=== PATIENT | male | born 1980 | race Caucasian/White ===

== ENCOUNTER 2017-02-27 05:08 | Day surgery (SDC) | payer MEDICAID ==
[~2017-02-27] VITALS: Ht 180.3 cm; Wt 99.8 kg
[2017-02-27] MEDS ORDERED: LEVOTHYROXINE75 MCG PO (05:43)
[2017-02-27] MEDS ORDERED: MINIPRESS2 MG PO (05:46)
[2017-02-27] MEDS ORDERED: LOVASTATIN40 MG PO (05:47)
[2017-02-27] MEDS ORDERED: LISINOPRIL-HCTZ1 T11 PO (05:47)
[2017-02-27] MEDS ORDERED: AMBIEN10 MG PO (05:48)
[2017-02-27] MEDS ORDERED: SEROQUEL100 MG PO (05:49)
[2017-02-27] MEDS ORDERED: VISTARIL50 MG PO (05:50)
[2017-02-27] MEDS ORDERED: REMERON45 MG PO (05:50)
[2017-02-27 06:03] VITALS: BP 124/83; Ht 180.3 cm; Wt 99.8 kg
[2017-02-27 06:44] LABS: MCH 28.5 pg (26.0-34.0); MCV 83.8 fL (80.0-100.0); MEAN PLATELET VOLUME 10.5 fL (7.4-10.4); RBC 5.97 10x6/uL (4.20-6.10); RDW 14.9 % (11.5-14.5); WBC 7.8 10x3/uL (4.8-10.8)
[2017-02-27] MEDS ORDERED: HYDROCODONE-APA1 TAB PO (07:59)
--- NOTE | 2017-02-27 09:44 | NUR ---
0920 PIV DC W/CATHETER TIP INTACT. DC TEACHING COMPLETE W/PRESCRIPT GIVEN TO 0936 PT ESCORTED OUT VIA WC W/ DRIVING
--- NOTE | 2017-02-28 16:21 | OP ---
PATIENT NAME: SINDHU MONSIVAIS MEDICAL RECORD: [id number] :76 LOCATION:[facility] ADMISSION DATE: SURGEON: SEYMOUR CHASE MD DATE OF OPERATION: 02/27/2017 PREOPERATIVE DIAGNOSIS: Carpal tunnel syndrome of the left wrist. POSTOPERATIVE DIAGNOSIS: Carpal tunnel syndrome of the left wrist. PROCEDURE: Left carpal tunnel release. SURGEON: Seymour Chase MD ANESTHESIA: General. INTRAOPERATIVE COMPLICATIONS: None. SUMMARY OF PATHOLOGIC FINDINGS: A very tight transverse carpal ligament consistent with the preoperative diagnosis. OPERATIVE SUMMARY IN DETAIL: After obtaining the appropriate preoperative orthopedic surgery consent as well as anesthetic consultation, evaluation and clearance, the patient were placed in supine position. After general laryngeal mask was administered, tourniquet was placed about the proximal aspect of the left upper extremity. Left upper extremity was prepped and draped in routine sterile fashion. The arm was elevated and exsanguinated, tourniquet inflated to 250 mmHg. A mid palmar incision was made, taken down to the level of distal aspect of the transverse carpal ligament was identified and incised. The median nerve was identified then covered with a freer elevator while the remainder of the transverse carpal ligament was incised under direct visualization. Having completed this, the wound was irrigated and closed with 4-0 Prolene in a combination of interrupted mattress fashion. The area was locally anesthetized with 0.25% Marcaine plain. Sterile dressings were applied. Tourniquet was deflated. The patient was awakened, taken to recovery in stable condition. All final needle and sponge counts were correct. TRANSINT:[id number] Voice Confirmation ID: [id number] DOCUMENT ID: [id number] SEYMOUR CHASE MD at 1621 CC: [id number] DICTATION DATE: 02/27/17 0801 CARE MANAGEMENT SPECIALIST: 02/27/17 1400 [facility] 02/27/[address] [id number]
== END 2017-02-27 09:35 | disposition home or self-care (01) ==
LOC: D.OPS 05:08 → D.PAN 07:30 → D.OPS 07:30
PROVIDERS: Anesthesiology
DX: G56.02 Carpal tunnel syndrome, left upper limb (principal); I10 Essential (primary) hypertension; Z72.0 Tobacco use; Z01.812 Encounter for preprocedural laboratory examination

== ENCOUNTER → 2017-04-14 05:08 | Day surgery (SDC) | payer MEDICAID ==
[~2017-04-14] VITALS: Ht 180.3 cm; Wt 99.8 kg
--- NOTE | ~2017-04-14 | OP ---
PATIENT NAME: SINDHU MONSIVAIS MEDICAL RECORD: [id number] :76 LOCATION:D.OPS ADMISSION DATE: SURGEON: SEYMOUR CHASE MD DATE OF OPERATION: 04/14/2017 PREOPERATIVE DIAGNOSIS: Carpal tunnel syndrome of the right hand. POSTOPERATIVE DIAGNOSIS: Carpal tunnel syndrome of the right hand. PROCEDURE: Carpal tunnel release. SURGEON: Seymour Chase MD ANESTHESIA: General. INTRAOPERATIVE COMPLICATIONS: None. SUMMARY OF PATHOLOGIC FINDINGS: A very tight transverse carpal ligament consistent with preoperative diagnosis as was seen on the contralateral side of the previous surgery. OPERATIVE SUMMARY IN DETAIL: After obtaining the appropriate preoperative orthopedic surgery consent as well as anesthetic consultation, evaluation and clearance, the patient was brought to the operating room and placed on the operating table in supine position. After general laryngeal mask was administered, tourniquet was placed about the proximal aspect of the right upper extremity. Right upper extremity was then prepped and draped in routine sterile fashion. The arm was elevated and exsanguinated, tourniquet inflated to 250 mmHg. Routine incision was made in line with the fourth metacarpal taken down to the level of transverse carpal ligament, it was identified. The median nerve was then protected. Light knife was utilized for carpal tunnel release. The transverse carpal ligament was released under direct visualization while protecting the median nerve. The wound was irrigated and closed with 4-0 Prolene. Sterile dressings were applied. Tourniquet was deflated. The patient was awakened and taken to the recovery room in stable condition. All final needle and sponge counts were correct. TRANSINT:[id number] Voice Confirmation ID: [id number] DOCUMENT ID: [id number] SEYMOUR CHASE MD CC: [id number] DICTATION DATE: 04/14/1745 LOFTSMAN/WOMAN: 04/14/1735 [place] [address]
[~2017-04-14 05:08] MED LIST: AMBIEN10 MG PO; HYDROCODONE-APA1 TAB PO; LEVOTHYROXINE75 MCG PO; LISINOPRIL-HCTZ1 T11 PO; LOVASTATIN40 MG PO; MINIPRESS2 MG PO; REMERON45 MG PO; SEROQUEL100 MG PO; VISTARIL50 MG PO
[2017-04-14 05:51] VITALS: BP 117/75; Ht 180.3 cm; Wt 99.8 kg
[2017-04-14 06:42] LABS: HEMOGLOBIN 17.5 g/dL (13.5-17.5); MCH 29.4 pg (26.0-34.0); MCV 83.9 fL (80.0-100.0); MEAN PLATELET VOLUME 10.8 fL (7.4-10.4); RBC 5.96 10x6/uL (4.20-6.10); RDW 14.8 % (11.5-14.5); WBC 5.9 10x3/uL (4.8-10.8)
== END | disposition home or self-care (01) ==
LOC: D.OPS 05:08 → D.PAN 07:30 → D.OPS 07:30
PROVIDERS: Anesthesiology
DX: G56.01 Carpal tunnel syndrome, right upper limb (principal); I10 Essential (primary) hypertension; E03.9 Hypothyroidism, unspecified; Z01.812 Encounter for preprocedural laboratory examination

== ENCOUNTER → 2018-07-08 15:01 | Outpatient (CLI) | payer MEDICAID ==
[2017-04-14 05:51] VITALS: BMI 30.7
[~2018-07-08 15:01] MED LIST changes: +HYDROCODON-ACE1 EAC7 PO; +KLONOPIN0.5 MG PO; +MEDROL DOSE PACK4 MG PO; +MIRALAX17 GM PO; +TOFRANIL50 MG PO; +ULTRAM50 MG PO; +ZOFRAN4 MG PO
== END | disposition home or self-care (01) ==
LOC: D.CT 15:00
DX: R51 Headache (principal)

== ENCOUNTER → 2018-07-09 09:07 | Outpatient (CLI) | payer MEDICAID ==
[2017-04-14 05:51] VITALS: BMI 30.7
== END | disposition home or self-care (01) ==
LOC: D.MRI 09:07
DX: R22.0 Localized swelling, mass and lump, head (principal)

== ENCOUNTER 2018-07-09 19:46 | Inpatient (IN) | payer MEDICAID ==
[~2018-07-09] VITALS: Ht 180.3 cm; Wt 93.2 kg
--- NOTE | ~2018-07-09 | MORECARE ---
CASE MANAGEMENT DISCHARGE SUMMARY PATIENT: ISNDHU MONSIVAIS UNIT: [id number] ADM DATE: 07/09/18 AGE: 37 : 76 SEX: M ROOM/BED: D.2226 AUTHOR: JOHNY HORN PHYSICIAN: REFERRING PHYSICIAN: BRIAN JUAREZ MD DATE OF SERVICE: 07/13/18 Discharge Plan Patient Name: SINDHU MONSIVAIS [facility] [facility] 1980 Planned Disposition: Anticipated Discharge Date: Discharge Date: 07/11/2018 Expected LOS: 0 Initial Reviewer: [email or web address] Initial Review Date: 07/13/2018 Generated: 07/13/18 3:47 pm Patient Name: SINDHU MONSIVAIS Page [phone] at 1447 All edits/amendments must be made on the electronic document DICTATION DATE: 07/13/18 1446 BUSINESS ANALYSIS PROFESSIONAL: LILI 07/13/18 1446 RPT#: [id number] DC DATE:07/11/18 STATUS: DIS IN [facility] [address] [place] [address] END OF REPORT
--- NOTE | ~2018-07-09 | OP ---
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 SURGEON: Modesta Shelton MD PROCEDURE: Right Stephanie's point ventriculoperitoneal shunt. DESCRIPTION AND TECHNIQUE: After induction of general endotracheal anesthesia, the patient was positioned supine on the operating table. The scalp, neck, chest and abdomen were prepped and draped in the usual sterile fashion. A 1:100,000 epinephrine was infiltrated of the scalp of the right Stephanie's point and then over the right mastoid and then over the 3 cm off the midline on the left, just above the umbilicus, an incision was made at the abdominal incision site. The anterior rectus sheath was divided with Bovie cautery and the rectus muscle was spread and then the posterior rectus sheath was divided with Metzenbaum scissors. The peritoneum was divided with Metzenbaum scissors. There were several loops of small bowel identified to confirm the peritoneal cavity. Next, the scalp incision was incised. The alejandro hole was created with the craniotome. The counter incision was incised and then an Integra standard CSF flow control valve with a ventricular catheter was used to cannulate the right frontal horn and the peritoneal portion was tunneled to the counter incision, and then from the counter incision to the abdominal incision. There was brisk egress of CSF from the CSF flow control valve and into the distal peritoneal catheter. The peritoneal catheter was deposited in the peritoneal cavity under direct vision. The posterior and anterior rectus sheath were closed with interrupted 3-0 Vicryl suture. The subdermal layer was closed with 3-0 Vicryl suture. The skin was closed with mady. At the scalp incision, the galea was reapproximated with interrupted 2-0 Vicryl suture. The counter incision fascia was closed with 3-0 Vicryl suture. Mady were used to close all 3 incisions. Counts were reported as correct. Estimated blood loss was minimal. TRANSINT:[id number] Voice Confirmation ID: [id number] DOCUMENT ID: [id number] MODESTA SHELTON MD CC: [id number] DICTATION DATE: 07/10/18 1227 POT FLUXER: 07/10/18 1554 ADM IN [place] [id number] [place] [id number]
[~2018-07-09 19:46] MED LIST changes: -HYDROCODON-ACE1 EAC7 PO; -KLONOPIN0.5 MG PO; -MEDROL DOSE PACK4 MG PO; -MIRALAX17 GM PO; -TOFRANIL50 MG PO; -ULTRAM50 MG PO; -ZOFRAN4 MG PO
[2018-07-09 20:41] VITALS: BP 137/78
[2018-07-09] MEDS ORDERED: ULTRAM50 MG PO (21:44)
[2018-07-09] MEDS ORDERED: KLONOPIN0.5 MG PO (21:46)
[2018-07-09] MEDS ORDERED: TOFRANIL50 MG PO (21:47)
[2018-07-09 23:19] VITALS: BP 137/78; Ht 180.3 cm; Wt 93.2 kg
[2018-07-10 04:39] VITALS: BP 120/69
[2018-07-10 11:32] VITALS: BP 120/68
[2018-07-10 12:35] VITALS: BP 132/77
[2018-07-10 15:52] VITALS: BP 131/75
[2018-07-10 21:33] VITALS: BP 145/86
[2018-07-11 01:10] VITALS: BP 118/74
[2018-07-11 04:40] VITALS: BP 111/72
[2018-07-11 06:17] LABS: BASOPHILS 0 % (0-2); EOSINOPHILS 0 % (0-7); HEMATOCRIT 40.2 % (42.0-54.0); HEMOGLOBIN 13.3 g/dL (13.5-17.5); IMMATURE GRANULOCYTES 0.2 % (0-5); LYMPHOCYTES 4.1 % (15-50); MCH 26.5 pg (26.0-34.0); MCHC 33.1 g/dL (31.0-37.0); MCV 80.2 fL (80.0-100.0); MEAN PLATELET VOLUME 10.5 fL (7.4-10.4); MONOCYTES 4.5 % (2-11); NEUTROPHILS 91.2 % (40-80); RBC 5.01 10x6/uL (4.20-6.10); RDW 15.7 % (11.5-14.5); WBC 17.2 10x3/uL (4.8-10.8)
[2018-07-11 06:20] LABS: PLATELET COUNT 288 10x3/uL (130-400)
[2018-07-11 06:41] LABS: CALC OSMOLALITY 282 mosm/kg (275-300); CALCIUM 8.2 mg/dL (8.5-10.1); CHLORIDE - SERUM 103 mmol/L (98-107); GLUCOSE 129 mg/dL (74-106); POTASSIUM - SERUM 3.3 mmol/L (3.5-5.1); SODIUM 140 mmol/L (136-145); UREA NITROGEN 19 mg/dL (7-18); eGFR NON AFRICAN AMERICAN 88 mL/min (90-120)
[2018-07-11 07:00] VITALS: BP 147/90
[2018-07-11] MEDS ORDERED: MIRALAX17 GM PO (11:01)
[2018-07-11] MEDS ORDERED: HYDROCODON-ACE1 EAC7 PO (11:02)
[2018-07-11] MEDS ORDERED: ZOFRAN4 MG PO (11:02)
[2018-07-11] MEDS ORDERED: MEDROL DOSE PACK4 MG PO (11:03)
== END 2018-07-11 12:45 | disposition home or self-care (01) | DRG 31 ==
LOC: D.MS 19:46 → D.OPS 07-10 09:30 → EDSTATUS 07-10 09:30 → D.MS 07-11 12:45
PROVIDERS: Internal Medicine Nephrology
PROC: 00160J6 Bypass Cerebral Ventricle to Peritoneal Cavity with Synthetic Substitute, Open Approach (ICD-10-PCS; principal; 2018-07-09)
DX: G91.1 Obstructive hydrocephalus (principal); G93.6 Cerebral edema; C71.7 Malignant neoplasm of brain stem; I10 Essential (primary) hypertension; E03.9 Hypothyroidism, unspecified; F32.9 Major depressive disorder, single episode, unspecified; F41.9 Anxiety disorder, unspecified; G47.00 Insomnia, unspecified

== ENCOUNTER 2018-08-31 11:05 | Inpatient (IN) | payer MEDICAID ==
[~2018-08-31] VITALS: Ht 180.3 cm; Wt 93.2 kg
[~2018-08-31 11:05] MED LIST changes: +HYDROCODON-ACE1 EAC7 PO; +KLONOPIN0.5 MG PO; +MEDROL DOSE PACK4 MG PO; +MIRALAX17 GM PO; +TOFRANIL50 MG PO; +ULTRAM50 MG PO; +ZOFRAN4 MG PO
[2018-09-03] VITALS (12 sets, daily range): BP systolic 108–140; BP diastolic 60–96; Ht 180.3 cm; Wt 93.2 kg
[2018-09-03 05:57] LABS: HEMATOCRIT 48.2 % (42.0-54.0); HEMOGLOBIN 16.1 g/dL (13.5-17.5); MCH 26.9 pg (26.0-34.0); MCHC 33.4 g/dL (31.0-37.0); MCV 80.6 fL (80.0-100.0); MEAN PLATELET VOLUME 9.9 fL (7.4-10.4); RBC 5.98 10x6/uL (4.20-6.10); RDW 15.8 % (11.5-14.5); WBC 6.8 10x3/uL (4.8-10.8)
[2018-09-03 06:24] LABS: CALC OSMOLALITY 282 mosm/kg (275-300); CALCIUM 8.7 mg/dL (8.5-10.1); CARBON DIOXIDE 30.1 mmol/L (21.0-32.0); CHLORIDE - SERUM 102 mmol/L (98-107); CREATININE - SERUM 1.1 mg/dL (0.6-1.3); GLUCOSE 96 mg/dL (74-106); POTASSIUM - SERUM 3.4 mmol/L (3.5-5.1); SODIUM 142 mmol/L (136-145); UREA NITROGEN 13 mg/dL (7-18); eGFR NON AFRICAN AMERICAN 79 mL/min (90-120)
--- NOTE | 2018-09-03 09:54 | NUR ---
PATIENT PLACED IN BHATT HEADREST BY DR SHELTON, THEN PLACED PRONE ON TABLE ALL AREAS CHECKED, PADDED, SECURED WITH NO IMPINGEMENTS, DR SHELTON PRESENT ON POSITIONING[facility]
--- NOTE | 2018-09-03 14:00 | NUR ---
PT RECEIVED VSS PT C/O OF MILD HEADACHE 09/27 NO SENSITIVITY TO LIGHT OR SOUND, DESCRIBED CONSTANT THROBBING. PT SHOWS NO SIGNS OF MOTOR OR NEURO DEFICITS AT THIS TIME WILL REASSESS. GIVEN ICE CHIPS FOR COMFORT. FAMILY AT BEDSIDE GIVEN UDPATE. ASSESSMENT COMPLTE PER FLOW SHEET REFER FOR FINDINGS. DENIES NEEDS WILL CONTINUE TO MONITOR
--- NOTE | 2018-09-03 18:07 | NUR ---
DR SHELTON AT BEDSIDE GIVEN UPDATE
--- NOTE | 2018-09-03 19:30 | NUR ---
REPORT REC'D AND CARE ASSUMED, REC'D PT RESTING IN BED, AWAKE, ALERT, AND ORIENTED X 4 ON ROOM AIR, PUPILS 4MM AND PERRLA, LEFT FOREARM PIV WITH NS @ 50CC/HR, LTLSCL DRSG CDI, DRSG TO POSTERIOR NECK CDI, PT COMPLAINS OF HEADACHE, RATING PAIN "4-5" ON 0-10 PAIN SCALE, CM-ST @ 110, ABD SOFT, BS HYPOACTIVE X 4 FISCHER PATENT DRAINING CLEAR YELLOW URINE, PPP, BILAT SCDS INTACT, RIGHT RADIAL CARLY WITH FLEXION BOARD IN USE, LINES LEVELED AND ZEROED WITH RETURN OF APPROPRIATE WAVEFORM, BED IN LOW POSITION ,CALL LIGHT IN REACH, VISIBLE TO NURSES STATION.
--- NOTE | 2018-09-03 19:40 | NUR ---
2MG MORPHINE GIVEN SLOW IVP, PT ASKING ABOUT ZOFRAN, INFORMED PT IT WAS TO SOON AT THIS TIME, VERBALIZED UNDERSTANDING, VSS, WILL MONITOR FOR CHANGES.
--- NOTE | 2018-09-03 21:00 | NUR ---
AND SISTER IN LAW AT BS, UPDATE GIVEN AND QUESTIONS ANSWERED, PT COMPLAINS OF HEADACHE , BP STABLE, WILL MONITOR CLOSELY FOR CHANGES.
--- NOTE | 2018-09-03 23:30 | NUR ---
REASSESSMENT COMPLETED, BILAT SEAT COVERER REMAIN EQUAL AND STRONG, SMILE SYMMETRICAL, PT REPORTS HEADACHE IMPROVED BUT NECK IS STIFF, STATES " I FEEL LIKE I WAS IN A CAR ACCIDENT", BP STABLE, DRSG TO POSTERIOR NECK CDI, REMAINS VISIBLE TO NURSES STATION.
--- NOTE | 2018-09-03 23:50 | NUR ---
PT AWAKE, STATES"MY NECK IS REALLY SORE" RATING PAIN "6" ON 0-10 PAIN SCALE PREMEDICATED WITH 4MG ZOFRAN GIVEN SLOW IVP, WILL GIVE ZOFRAN SOMETIME TO ACT AND THEN GIVE MORPHINE NEEDED FOR PAIN.
[2018-09-04] VITALS (17 sets, daily range): BP systolic 115–156; BP diastolic 68–92
--- NOTE | 2018-09-04 00:15 | NUR ---
2MG MORPHINE GIVEN SLOW IVP, BP STABLE, CM-ST @ 108, PT DENIES FURTHER NEEDS, SR UP X 2, CALL LIGHT IN REACH.
--- NOTE | 2018-09-04 02:15 | NUR ---
NO CHANGES IN STATUS AT THIS TIME, PT RESTING EYES CLOSED, RESP EVEN AND UNLABORED, BP STABLE, WILL CONT TO MONITOR CLOSELY FOR CHANGES.
--- NOTE | 2018-09-04 03:30 | NUR ---
REASSESSMENT COMPLETED, PT EASILY AWAKENS ,ORIENTED X 4, BILAT RECYCLING COLLECTIONS DRIVER EQUAL AND STRONG, SPEECH CLEAR, TONGUE MIDLINE, MOVES LOWER EXT'S EQUALLY, WHEN ASKED IF IN PAIN STATES "JUST SORE", PT DENIES NEEDS, CALL LIGHT IN REACH.
--- NOTE | 2018-09-04 03:35 | NUR ---
PT HOLDING FOREHEAD WHEN ASKED IF HURTING STATES "MY WHOLE HEAD DOES", PT RATING PAIN "6" ON 0-10 PAIN SCALE, HYDROCODONE 2 TABS GIVEN PO AT THIS TIME AND FRESH CUP OF ICE WATER PROVIDED, PT DENIES FURTHER NEEDS, CALL LIGHT IN REACH, VISIBLE TO NURSES STATION.
--- NOTE | 2018-09-04 05:00 | NUR ---
AT BS, UPDATE GIVEN AND QUESTIONS ANSWERED, PT RESTING IN BED EYES CLOSED, VSS, CM-ST @ 124, TEMP 99.1, WILL CONT TO MONITOR.
--- NOTE | 2018-09-04 07:00 | NUR ---
PATIENT RESTING IN BED WITH HOB ELEVATED 30 DEGREES. INCISION TO POSTERIOR NECK SEMISATURATED WITH SEROSANGUINEOUS FLUID. WILL ASK DR. SHELTON IF HE WANTS NURSES TO CHANGE THE DRESSING WHEN HE MAKES ROUNDS. HEART RATE IS ELEVATED TO 120--IT HAS BEEN THIS WAY SINCE RETURN FROM SURGERY YESTERDAY. OTHER VS STABLE. PUPILS EQUAL AND REACTIVE TO LIGHT WITH ACCOMODATION. MOVES ALL EXTREMETIES EQUALLY. COMPLAINS OF HEADACH. WILL TREAT WITH WITH RX AND ZOFRAN. WILL CONTINUE TO MONITOR.
--- NOTE | 2018-09-04 07:00 | NUR ---
PATIENT RESTING IN BED C CALL CRUZ IN REACH AWAKE ALERT AND ORIENTED. LUNG BARRIOS CLEAR O2 SAT 96% ON 2 L NC. VSS. BOWEL SOUNDS ACTIVE, ABDOMEN FEELS A LITTLE TIGHT ACCORDING TO PATIENT. LAXATIVES WERE GIVEN LAST NIGHT. WILL CONTINUE TO MONITOR
--- NOTE | 2018-09-04 09:59 | NUR ---
OBTAINED ORDER FROM DR. SHELTON TO START PT/OT, TRANSFER TO FLOOR, START BACK ON HOME MEDICATIONS, AND DC LINES. NOTIFIED ABOUT HR IN 120'S. STATED HE IS NOT CONCERNED WITH THAT.
--- NOTE | 2018-09-04 11:15 | NUR ---
ASSISTED PATIENT ONTO BEDSIDE COMMODE FOR BM. CONSULTED DR. JUAREZ FOR MEDICAL MANAGEMENT AFTER SPEAKING TO DR. SHELTON ON PHONE. ALSO OBTAINED ORDERS FOR THORAZINE FOR HICCUPS, TRANSFER TO FLOOR, DC CVL, ART LINE, AND CATHETER, AND CONSULT PT/OT.
--- NOTE | 2018-09-04 11:49 | NUR ---
REMOVED FISCHER CATHETER PER PATIENT REQUEST AND DR. SHELTON ORDER. PATIENT IMMEDIATELY VOIDED.
--- NOTE | 2018-09-04 13:00 | NUR ---
DC'D LEFT SUBCLAVIAN CVL AFTER LAYING FLAT. INSTRUCTED TO LAY FLAT FOR 30 MINUTES. NO BLEEDING PROBLEM. DRESSED WITH GUAZSE AND TEGADERM. DC'D RIGHT RADIAL ARTERIAL LINE. HELD PRESSURE FOR FIVE MINUTES AND DRESSED WITH GUAZE AND TEGADERM. NO BLEEDING. CHANGED POSTERIOR NECK INCISION DRESSING. OLD DRESSING WAS PARTIALLY SATURATED WITH SEROSANGUINEOUS DRAINAGE. CLEANED WITH DERMAL WOUND CLEANSER AND APPLIED NEW BORDERED GUAZE.
--- NOTE | 2018-09-04 14:30 | NUR ---
PATICONNOR HAS BEEN NAUSEATED AND THROWING IN BAG. ADMINISTERED ZOFRAN. ALSO ADMINISTERED ROBAXIN FOR NECK AND THORAZINE FOR HICCUPS. IN ROOM
--- NOTE | 2018-09-04 16:30 | NUR ---
REPORT GIVEN TO MED SURGE NURSE. TRANSFERRING TO FLOOR VIA BED.
[2018-09-05] VITALS: BP 102/59
[2018-09-05 04:00] VITALS: BP 137/91
--- NOTE | 2018-09-05 04:38 | NUR ---
ASSESSED AT THE BEGINNING OF THE SHIFT. PT IS ALERT AND ORIENTED WITH GOOD NEURO CHECKS. REMAINS AT THE BEDSIDE. HE HAS HAD NAUSEA, HICCUPS AND PAIN TO HIS HEAD AND CHEST. HICCUPS ARE VERY DEEP AND PAINFUL. HE HAS THROWN UP SEVERAL TIMES AND ONCE HE THREW UP ABOUT 300 CC OF BROWN FLUID. THORAZINE HAS NOT RELEIVED THE HICCUPS. THE DRESSING TO HIS HEAD HAS REMAINED IN PLACE AND HOB ELEVATED. UNLESS ASLEEP HE HAS BEEN PRETTY MISERABLE. HIS HAS BEEN KEEPING A WET COOL CLOTH ON HIS FOREHEAD. PAIN MEDS HAVE BEEN GIVEN REQUESTED TO KEEP HIM COMFORTABLE
[2018-09-05 09:15] VITALS: BP 145/92
--- NOTE | 2018-09-05 10:15 | NUR ---
CONTINUES TO C/O NAUSEA AND VOMITTING. PAIN LEVEL 7/10 POSTERIOR HEAD, DENIES ANY PRESSURE. PERRLA. ZOFRAN DRIP ON CONTINUOUS IV, MORPHINE GIVEN PER ORDER, COLD RAGS APPLIED TO BACK OF NECK AND SHOULDERS, EMEIS BAG PROVIDED. PRESENT IN ROOM, DENIES ANY OTHER NEEDS OR DISCOMFORTS, BED LOWERED AND LOCKED, CPOC
--- NOTE | 2018-09-05 12:00 | NUR ---
DRESSING ON BACK OF HEAD/NECK CHANGED D/T DRAINAGE, SITE CLEAN AND DRY. NO PRULENT DRAINAGE, NO SWELLING OR REDNESS AT INCISION SITE, NEW DRESSING APPLIED, DENIES ANY NEEDS OR DISCOMFORTS, BED LOWERED AND LOCKED, CALL LIGHT WITHIN REACH. CPOC
--- NOTE | 2018-09-05 12:03 | NUR ---
SPOKE WITH DR. SHELTON IN REGARDS TO CURRENT SYMPTOMS, INCREASED CHLORPROMAZINE FROM 10MG TO 20MG, ADDED PHENEGREN IM FOR NAUSEA, INCREASED FLUIDS, INSURE SCD'S ON ON AND PRESENT, SCOPOLAMINE PATCH, C/O NUMBESS AND TINGLING IN LOWER LEGS, CAT IS AWARE, DENIES ANY CURRENT NEEDS OR DISCOMFORTS, BED LOWERED AND LOCKED, CALL LIGHT WITHIN REACH. CPOC
[2018-09-05 14:10] VITALS: BP 144/86
--- NOTE | 2018-09-05 14:36 | NUR ---
OT NOTE: LATE ENTRY DOS 09/04/18 PT COMPLETED BED MOB WITH MIN A. PT COMPLETED HYGIENE TASK WITH SET UP. THANK YOU, AMANDA GARCIA
[2018-09-05 16:02] LABS: ANION GAP 15.3 mmol/L (8-16); CALCIUM 8.2 mg/dL (8.5-10.1); CARBON DIOXIDE 27.3 mmol/L (21.0-32.0); CREATININE - SERUM 1.2 mg/dL (0.6-1.3); POTASSIUM - SERUM 3.6 mmol/L (3.5-5.1)
[2018-09-05 17:44] VITALS: BP 125/77
--- NOTE | 2018-09-05 19:30 | NUR ---
PT SITTING UP IN BED, NO SIGNS OF DISTRESS. ALERT AND ORIENTED. FAMILY AT BEDSIDE. DRESSING TO BACK OF NECK CDI. IV LEFT FA INFUSING NS @ 125 W/ ZOFRAN DRIP. PT STATES PAIN IS "NOT TOO BAD" AND CURRENTLY IS NOT NAUSEAS. PERRLA. HAND REWINDER OPERATOR STRONG AND EQUAL BILAT. LEGS STRENGTH EQUAL BILAT. FOLLOWS COMMANDS EASILY. FACIAL EXPRESSION EQUAL TO BOTH SIDES. HOB GREATER THAN 45 DEGREES. SCDS ON AND IN PLACE. NO COMPLAINTS OR NEEDS AT THIS TIME. CL IN REACH, WILL CONTINUE TO MONITOR
[2018-09-05 20:00] VITALS: BP 94/51
--- NOTE | 2018-09-05 20:30 | NUR ---
NOTIFIED BY AID OF LOW BP. FIRST ATTEMPT 94/51, THEN 101/48. PT BP HAS NOT PREVIOUSLY BEEN THIS LOW. PT NOTED TO BE SLIGHTLY LETHARGIC. PT IS STILL ABLE TO ANSWER ALL QUESTIONS APPROPRIATELY. NO OTHER CHANGE FROM PREVIOUS ASSESSMENT. PT HAVING HICCUPS FOR FEW MINUTES AT A TIME OCCASIONALLY, NO NAUSEA UNTIL HICCUPS BEGIN. DR SHELTON CALLED AND NOTIFIED. ORDERED BOLUS NS 1000ML NOW. PT PLACED ON CONT VS Q15MIN. WILL CONTINUE TO MONITOR
--- NOTE | 2018-09-05 22:15 | NUR ---
DR SHELTON NOTIFIED OF PT BP 98/50 AND HOLDING 30 MINUTES AFTER BOLUS OF NS. DR SHELTON INSTRUCTED TO HOLD ANY SEDATIVE MEDICATION FOR NOW AND CONT WITH NS @ 150. WILL CONT TO MONITOR
[2018-09-06] VITALS: BP 104/53
--- NOTE | 2018-09-06 01:00 | NUR ---
PT BP 116/62 AND HOLDING. PT HAS HAD HICCUPS FOR ALMOST AN HOUR OFF AND ON AND BECOMING MORE INTENSE. UNABLE TO GET RELIEF OR REST. EXPLAINED TO PT REASON FOR HOLDING SEDATIVE MEDICATIONS. PT VERBALIZED UNDERSTANDING. NO NAUSEA AT THIS TIME, ONLY SOME GAGGING WHEN CONT HICCUPING. WILL CONTINUE TO MONITOR
--- NOTE | 2018-09-06 02:00 | NUR ---
CALLED DR SHELTON ABOUT PT HICCUPING CONTINUOUSLY. INSTRUCTED TO GIVE DOSE OF VALIUM PREVIOUSLY HELD. GAVE VALIUM. PT WAS ABLE TO STOP HICCUPING WITHIN 15 MINUTES OF DOSE. WILL CONTINUE TO MONITOR
[2018-09-06 04:00] VITALS: BP 109/66
--- NOTE | 2018-09-06 05:00 | NUR ---
BP 116/72. PT ALERT AND ORIENTED. MORE CONVERSIVE THIS AM. PT STATES PAIN IS "NOT TOO BAD." REQUESTED TO TAKE A SHOWER. INTSTRUCTED PT NOT TO GET BACK OF NECK AND INCISION WET. WRAPPED UP PT IV AND ASSISTED W/ SHOWER SET UP. ASSISTED PT IN SHOWER. PT TOLERATED WELL. CHANGED LINENS WHILE PT WAS UP. PT FINISHED AND GOT BACK IN BED. VSS. DRESSING TO NECK CDI. PT DENIES NEEDS AT THIS TIME. HICCUPS STOPPED WHILE PT WAS UP TO SHOWER AND STARTED ONCE BACK IN BED. HICCUPS LESS INTENSE THEY WERE EARLIER IN NIGHT AND ARE NOW OFF AND ON INSTEAD OF CONSTANT. WILL CONTINUE TO MONITOR
[2018-09-06 08:12] LABS: BASOPHILS 0 % (0-2); EOSINOPHILS 0 % (0-7); HEMATOCRIT 35.9 % (42.0-54.0); HEMOGLOBIN 11.9 g/dL (13.5-17.5); IMMATURE GRANULOCYTES 0.3 % (0-5); LYMPHOCYTES 3.5 % (15-50); MCH 26.7 pg (26.0-34.0); MCHC 33.1 g/dL (31.0-37.0); MCV 80.5 fL (80.0-100.0); MEAN PLATELET VOLUME 9.7 fL (7.4-10.4); MONOCYTES 6.8 % (2-11); NEUTROPHILS 89.4 % (40-80); RBC 4.46 10x6/uL (4.20-6.10); RDW 15.8 % (11.5-14.5); WBC 18.3 10x3/uL (4.8-10.8)
[2018-09-06 08:13] LABS: PLATELET COUNT 184 10x3/uL (130-400)
[2018-09-06 08:20] LABS: CALC OSMOLALITY 281 mosm/kg (275-300); CALCIUM 7.9 mg/dL (8.5-10.1); CARBON DIOXIDE 24.7 mmol/L (21.0-32.0); CHLORIDE - SERUM 105 mmol/L (98-107); CREATININE - SERUM 1.1 mg/dL (0.6-1.3); GLUCOSE 118 mg/dL (74-106); POTASSIUM - SERUM 3.6 mmol/L (3.5-5.1); SODIUM 140 mmol/L (136-145); UREA NITROGEN 17 mg/dL (7-18); eGFR NON AFRICAN AMERICAN 79 mL/min (90-120)
--- NOTE | 2018-09-06 08:20 | NUR ---
SITTING UP RIGHT IN BED, EVEN UNLABORED BREATHING, HICCUPS CONTINUE FREQUENTLY, IV IN LEFT FOREWARM PATENT INFUSING FLUIDS, FAMILY MEMBER PRESENT, DENIES ANY CURRENT NEEDS OR DISCOMFORTS, BED LOWERED AND LOCKED, CALL LIGHT WITHIN REACH. CPOC
[2018-09-06 08:42] VITALS: BP 121/68
--- NOTE | 2018-09-06 09:37 | NUR ---
SPOKE WITH DR SHELTON, WE ARE HOLDING PAIN MEDICATION AT CURRENT TIME, PT SHOWS SENSITVITY TO NARCOTICS AND HAS DENIED ANY PAIN GREAT THAN 5/10. HOLDING BLOOD PRESSURE THIS MORNING UNTIL WE HAVE MORE STABLE BLOOD PRESSURES.
[2018-09-06 13:36] VITALS: BP 112/63
[2018-09-06 17:42] VITALS: BP 101/64
--- NOTE | 2018-09-06 18:53 | NUR ---
LAYING ON RIGHT SIDE IN BED, HICCUPS HAVE DECREASED SINCE YESTERDAY, NO EMEIS DURING THE LAST 24 HOURS, PAIN IS UNDER CONTROL AT <4 OUT OF 10. CONTIUNES ON IV FLUIDS, ZOFRAN DRIP AND PROTONIX DRIP, DRESSING ON BACK OF NECK AND HEAD HAS BEEN CHANGED D/T NO ADHERENCE TO SKIN, SCD'S ON, DENIES ANY CURRENT NEEDS OR DISCOMFORTS, BED LOWERED AND LOCKED, CALL LIGHT WITHIN REACH. CPOC
--- NOTE | 2018-09-06 19:45 | NUR ---
PT SITTING UP IN BED, NO SIGNS OF DISTRESS. ALERT AND ORIENTED. PT STATES HIS HICCUPS ARE NOT BAD LAST NIGHT. STATES NO NAUSEA AT THIS TIME. IV LEFT FA INFUSING NS @ 125 W/ ZOFRAN AND PROTONIX DRIPS. DRESSING TO BACK OF NECK CDI. PT STATES PAIN 5/10. GAVE NORCO ORDERED. SCDS ON AND IN PLACE. PROVIDED PT W/ POPSICLE. NO OTHER NEEDS AT THIS TIME. CL IN REACH, WILL CONTINUE TO MONITOR
[2018-09-06 21:20] VITALS: BP 127/75
[2018-09-07 02:06] VITALS: BP 85/41
--- NOTE | 2018-09-07 04:45 | NUR ---
PT STATES PAIN 6/10 IN BACK OF NECK. GAVE NORCO 1 TAB. WILL CONT TO MONITOR
[2018-09-07 06:00] VITALS: BP 112/76
[2018-09-07 06:08] LABS: BASOPHILS 0 % (0-2); EOSINOPHILS 0 % (0-7); HEMATOCRIT 35.6 % (42.0-54.0); HEMOGLOBIN 11.7 g/dL (13.5-17.5); IMMATURE GRANULOCYTES 0.2 % (0-5); LYMPHOCYTES 4.4 % (15-50); MCH 26.6 pg (26.0-34.0); MCHC 32.9 g/dL (31.0-37.0); MCV 80.9 fL (80.0-100.0); MEAN PLATELET VOLUME 10.1 fL (7.4-10.4); MONOCYTES 6.7 % (2-11); NEUTROPHILS 88.7 % (40-80); PLATELET COUNT 175 10x3/uL (130-400); RDW 15.7 % (11.5-14.5)
[2018-09-07 06:30] LABS: ALBUMIN 2.6 g/dL (3.4-5.0); ALKALINE PHOSPHATASE 34 U/L (46-116); ALT (SGPT) 17 U/L (10-68); AMYLASE - SERUM 38 U/L (25-115); CALC OSMOLALITY 285 mosm/kg (275-300); CALCIUM 7.7 mg/dL (8.5-10.1); CARBON DIOXIDE 23.3 mmol/L (21.0-32.0); CHLORIDE - SERUM 110 mmol/L (98-107); GLUCOSE 117 mg/dL (74-106); LIPASE 135 U/L (73-393); POTASSIUM - SERUM 3.4 mmol/L (3.5-5.1); PROTEIN - SERUM 5.4 g/dL (6.4-8.2); SODIUM 142 mmol/L (136-145); UREA NITROGEN 18 mg/dL (7-18); eGFR NON AFRICAN AMERICAN 88 mL/min (90-120)
[2018-09-07 06:41] LABS: WBC 12.3 10x3/uL (4.8-10.8)
[2018-09-07 06:45] LABS: INR 1.24 (0.85-1.17); PROTIME 15.1 SECONDS (11.6-15.0)
--- NOTE | 2018-09-07 07:30 | NUR ---
PT RESTING IN DARK ROOM, FAMILY AT BEDSIDE. NO ACUTE DISTRESS NOTED. REPORTS PAIN 5/10 AT THIS TIME TO INCISION TO POSTERIOR NECK. DRESSING TO NECK C/D/I. CONTINUES TO PRESENT WITH LIGHT HICCUPS. IV TO LEFT FOREARM WITH NS @ 125ML/HR, ZOFRAN @ 4.7ML/HR, AND PROTONIX @ 10ML/HR INFUSING VIA PUMP, SITE WITHOUT REDNESS OR EDEMA. DENIES NEEDS AT THIS TIME. CL WITHIN REACH. ENCOURAGED TO CALL WITH NEEDS. CONTINUE POC
[2018-09-07 08:45] VITALS: BP 115/71
--- NOTE | 2018-09-07 09:10 | NUR ---
TAKEN VIA W/C TO RADIOLOGY. NO ACUTE DISTRESS NOTED.
--- NOTE | 2018-09-07 09:30 | NUR ---
RETURN FROM RADIOLOGY VIA W/C NO ACUTE DISTRESS. HICCUPS CONTINUE.
--- NOTE | 2018-09-07 11:28 | NUR ---
PT REPORTS CONTINUED HICCUPS, REPORTING "THEY ARE AT TIMES BREATHTAKING". THORAZINE ADMINISTERED PER MD ORDERS AT THIS TIME. PT REPORTS THAT HE IS GOING TO ATTEMPT TO SLEEP SOME. ENCOURAGED PT TO CALL WITH NEEDS. CL WITHIN REACH. CONTINUE TO MONITOR.
[2018-09-07 13:28] VITALS: BP 109/69
--- NOTE | 2018-09-07 13:42 | MORECARE ---
CASE MANAGEMENT DISCHARGE SUMMARY PATIENT: SINDHU MONSIVAIS UNIT: [id number] ADM DATE: 09/03/18 AGE: 38 : 76 SEX: M ROOM/BED: D.2207 AUTHOR: JOHNY HORN PHYSICIAN: REFERRING PHYSICIAN: MODESTA SHELTON MD DATE OF SERVICE: 09/07/18 Discharge Plan Patient Name: SINDHU MONSIVAIS [facility] [facility] 1980 Planned Disposition: Home or Self Care Anticipated Discharge Date: Discharge Date: Expected LOS: Initial Reviewer: [email or web address] Initial Review Date: 09/03/2018 Generated: 09/07/18 2:42 pm DCPIA - Discharge Planning Initial Assessment Updated by [email or web address]: Elicia Cai on 09/07/18 1:40 pm * Is the patient Alert and Oriented? Yes * How many steps to enter\exit or inside your home? * PCP [facility] * Pharmacy [facility] * Preadmission Environment Home with Family * ADLs Independent * Equipment None * List name and contact numbers for known caregivers / representatives who currently or will assist patient after discharge: DEV () [phone] * Verbal permission to speak to the caregivers and representatives has been obtained from the patient. Yes * Community resources currently utilized None * Additional services required to return to the preadmission environment? No * Can the patient safely return to the preadmission environment? Yes * Has this patient been hospitalized within the prior 30 days at any hospital? No Patient Name: SINDHU MONSIVAIS Page [phone] at 1342 All edits/amendments must be made on the electronic document DICTATION DATE: 09/07/18 1341 CHANNEL ACCOUNT MANAGER: LILI 09/07/18 1341 RPT#: [id number] DC DATE: STATUS: ADM IN [facility] [address] [place] [address] END OF REPORT
--- NOTE | 2018-09-07 13:50 | MORECARE ---
CASE MANAGEMENT DISCHARGE SUMMARY PATIENT: SINDHU MONSIVAIS UNIT: [id number] ADM DATE: 09/03/18 AGE: 38 : [birth year] SEX: M ROOM/BED: D.2207 AUTHOR: JOHNY HORN PHYSICIAN: REFERRING PHYSICIAN: MODESTA SHELTON MD DATE OF SERVICE: 09/07/18 Discharge Plan Patient Name: SINDHU MONSIVAIS Facility: [facility]:[place] : 1980 Planned Disposition: Home or Self Care Anticipated Discharge Date: Discharge Date: Expected LOS: Initial Reviewer: [email or web address] Initial Review Date: 09/03/2018 Generated: 09/07/18 2:50 pm Comments DCP- Discharge Planning Updated by [email or web address]: Elicia Cai on 09/07/18 12:[address] Patient Name: SINDHU MONSIVAIS Admission Status: Elective Accout number: [id number] Admission Date: 09-03-2018 : 1980 Admission Diagnosis:NEOPLASM OF UNSPECIFIED BEHAVIOR OF BRAIN Attending: MODESTA SHELTON Current LOS: 4 Anticipated DC Date: Planned Disposition: Home or Self Care Primary Insurance: [employer] [place] [employer] ANTON[place] Discharge Planning Comments: CM met with patient to complete initial dc planning assessment. CM educated patient on the CM role and verbal consent given by patient to complete assessment. Patient lives independently at home with his , Angely. At discharge patient plans to return home and feels this is a safe discharge. 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 CM discussed availability of home health, rehab services, and medical equipment. Patient denied known discharge needs at this time. CM will continue to follow and will assist as needed with dc plans/needs. [employer] Supervisor: Elicia Cai DCPIA - Discharge Planning Initial Assessment Updated by [email or web address]: Elicia Cai on 09/07/18 1:40 pm * Is the patient Alert and Oriented? Yes * How many steps to enter\exit or inside your home? * PCP SAV * Pharmacy [facility] * Preadmission Environment Home with Family * ADLs Independent * Equipment None * List name and contact numbers for known caregivers / representatives who currently or will assist patient after discharge: ANGELY () [phone] * Verbal permission to speak to the caregivers and representatives has been obtained from the patient. Yes * Community resources currently utilized None * Additional services required to return to the preadmission environment? No * Can the patient safely return to the preadmission environment? Yes * Has this patient been hospitalized within the prior 30 days at any hospital? No Last DP export: 09/07/18 12:42 p Patient Name: SINDHU MONSIVAIS Page 82698 at 1350 All edits/amendments must be made on the electronic document DICTATION DATE: 09/07/18 134 OUTPATIENT FACILITY PHYSICAL THERAPIST: LILI 09/07/18 134 RPT#: [id number] DC DATE: STATUS: ADM IN [facility] [address] [place] [address] END OF REPORT
--- NOTE | 2018-09-07 14:45 | NUR ---
PT DRESSING CHANGED TO POSTERIOR NECK. DRESSING REMOVED WITH SCANT AMOUNT OF SEROSANGUENOUS DRAINAGE NOTED. DARCY NOTED INTACT NO REDNESS OR EDEMA NOTED TO INCISION SITE. DRESSING PLACED BACK TO NECK. DENIES FURTHER NEEDS AT THIS TIME. CL WITHIN REACH. WILL CONTINUE TO MONITOR.
--- NOTE | 2018-09-07 16:39 | NUR ---
OT NOTE: PT COMPLETED BED MOB WITH SPV. PT COMPLETED EOB SITTING BALANCE WITH SPV/SBA. PT COMPLETED SIT TO STAND WITH CGA. PT COMPLETED SIMPLE GROOMING TASK WITH SET UP. THANK YOU, AMANDA GARCIA
[2018-09-07 17:09] VITALS: BP 108/56
--- NOTE | 2018-09-07 20:40 | NUR ---
AWAKE,ALERT,NO COMPLAITNS VOICED AT PRESENT.DARCY INTACT TO HEAD INCISION WITH REDNESS OR MAGY NOTED. LIGHT YELLOW TINGED DRAINAGE NOTED ON PILLOW. REQUEST DRESSING BE PUT BACK ON INCISION D/T DRAINAGE.DRSG APPLIED PER REQUEST. CL IN REACH
[2018-09-07 21:24] VITALS: BP 96/43
--- NOTE | 2018-09-08 01:46 | NUR ---
EYES CLOSED RESPIRATINS WITH EASE AND UNLABORED. DRESSING TO POSTERIOR NECK C/D/I.
[2018-09-08 04:59] LABS: BASOPHILS 0 % (0-2); EOSINOPHILS 0.2 % (0-7); HEMATOCRIT 37.3 % (42.0-54.0); HEMOGLOBIN 12.2 g/dL (13.5-17.5); IMMATURE GRANULOCYTES 0.3 % (0-5); LYMPHOCYTES 12.8 % (15-50); MCH 26.5 pg (26.0-34.0); MCHC 32.7 g/dL (31.0-37.0); MCV 80.9 fL (80.0-100.0); MEAN PLATELET VOLUME 10.2 fL (7.4-10.4); MONOCYTES 8.3 % (2-11); NEUTROPHILS 78.4 % (40-80); PLATELET COUNT 197 10x3/uL (130-400); RBC 4.61 10x6/uL (4.20-6.10); RDW 15.3 % (11.5-14.5); WBC 11.8 10x3/uL (4.8-10.8)
[2018-09-08 05:03] VITALS: BP 117/78
[2018-09-08 05:13] LABS: CALC OSMOLALITY 288 mosm/kg (275-300); CALCIUM 7.5 mg/dL (8.5-10.1); CARBON DIOXIDE 26.3 mmol/L (21.0-32.0); CHLORIDE - SERUM 110 mmol/L (98-107); CREATININE - SERUM 1.1 mg/dL (0.6-1.3); GLUCOSE 99 mg/dL (74-106); SODIUM 144 mmol/L (136-145); UREA NITROGEN 17 mg/dL (7-18); eGFR NON AFRICAN AMERICAN 79 mL/min (90-120)
[2018-09-08 05:18] LABS: POTASSIUM - SERUM 2.9 mmol/L (3.5-5.1)
--- NOTE | 2018-09-08 08:37 | NUR ---
PT AAOX4 RESP EVEN AND NONLABORED, NO SIGNS OF DISTRESS NOTED, FAMILY AT BEDSIDE CL IN REACH
[2018-09-08 08:45] VITALS: BP 137/75
[2018-09-08 08:51] VITALS: BP 114/72
--- NOTE | 2018-09-08 12:59 | MORECARE ---
CASE MANAGEMENT DISCHARGE SUMMARY PATIENT: SINDHU MONSIVAIS UNIT: [id number] ADM DATE: 09/03/18 AGE: 38 : 76 SEX: M ROOM/BED: D.2207 AUTHOR: JOHNY HORN PHYSICIAN: REFERRING PHYSICIAN: MODESTA SHELTON MD DATE OF SERVICE: 09/08/18 Discharge Plan Patient Name: SINDHU MONSIVAIS Facility: [facility]:[place] : 1980 Planned Disposition: Home or Self Care Anticipated Discharge Date: Discharge Date: Expected LOS: Initial Reviewer: [email or web address] Initial Review Date: 09/03/2018 Generated: 09/08/18 1:58 pm Comments DCP- Discharge Planning Updated by [email or web address]: Elicia Cai on 09/08/18 11:[address] Patient Name: SINDHU MONSIVAIS Encounter No: [id number] : 1980 Primary Insurance: [employer] [facility] Anticipated DC Date: Planned Disposition: Home or Self Care External Planned Provider: : DCP follow-up note: Patient and family in agreement with discharge plan. No changes to plan. Case management will follow and assist as needed. Elicia Cia DCP- Discharge Planning Updated by [email or web address]: Elicia Cai on 09/07/18 12:[address] Patient Name: SINDHU MONSIVAIS Admission Status: Elective Accout number: [id number] Admission Date: 09-03-2018 : 1980 Admission Diagnosis:NEOPLASM OF UNSPECIFIED BEHAVIOR OF BRAIN Attending: MODESTA SHELTON Current LOS: 4 Anticipated DC Date: Planned Disposition: Home or Self Care Primary Insurance: [employer] [facility] Discharge Planning Comments: CM met with patient to complete initial dc planning assessment. CM educated patient on the CM role and verbal consent given by patient to complete assessment. Patient lives independently at home with his , Angely. At discharge patient plans to return home and feels this is a safe discharge. 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 CM discussed availability of home health, rehab services, and medical equipment. Patient denied known discharge needs at this time. CM will continue to follow and will assist as needed with dc plans/needs. Fishing Worker: Elicia Cai DCPIA - Discharge Planning Initial Assessment Updated by [email or web address]: Elicia Cai on 09/07/18 1:40 pm * Is the patient Alert and Oriented? Yes * How many steps to enter\exit or inside your home? * PCP SAV * Pharmacy [facility] * Preadmission Environment Home with Family * ADLs Independent * Equipment None * List name and contact numbers for known caregivers / representatives who currently or will assist patient after discharge: ANGELY () [phone] * Verbal permission to speak to the caregivers and representatives has been obtained from the patient. Yes * Community resources currently utilized None * Additional services required to return to the preadmission environment? No * Can the patient safely return to the preadmission environment? Yes * Has this patient been hospitalized within the prior 30 days at any hospital? No Last DP export: 09/07/18 12:50 p Patient Name: SINDHU MONSIVAIS Page 01565 at 1259 All edits/amendments must be made on the electronic document DICTATION DATE: 09/08/181257 GAMBLING SUPERVISOR: LILI 09/08/18 125 RPT#: [id number] DC DATE: STATUS: ADM IN [facility] [address] [place] [address] END OF REPORT
[2018-09-08 13:39] VITALS: BP 119/67
[2018-09-08] MEDS ORDERED: NEURONTIN 300300 MG PO (13:39)
[2018-09-08] MEDS ORDERED: HCTZ25 MG PO (13:40)
[2018-09-08] MEDS ORDERED: MIRALAX17 GM PO (13:41)
[2018-09-08] MEDS ORDERED: PROTONIX40 MG PO (13:42)
[2018-09-08] MEDS ORDERED: ZOFRAN ODT4 MG/UDTAB PO (13:42)
[2018-09-08] MEDS ORDERED: COLACE100 MG PO (13:43)
[2018-09-08] MEDS ORDERED: THORAZINE10 MG PO (13:44)
[2018-09-08] MEDS ORDERED: ROBAXIN500 MG PO (13:44)
[2018-09-08] MEDS ORDERED: HYDROCODON-ACE1 EAC7 PO (13:45)
--- NOTE | 2018-09-08 15:49 | NUR ---
IV DC WITH CATH INTACT, DC INSTRUCTIONS GIVEN PT VERABLIZES UNDERSTANDING, LEAVING VIA WHELCHAIR VIA HOSPTIAL STAFF VIA PRIVATE VECHILE IN STABLE CONDITON
--- NOTE | 2018-09-09 17:48 | MORECARE ---
CASE MANAGEMENT DISCHARGE SUMMARY PATIENT: SINDHU MONSIVAIS UNIT: [id number] ADM DATE: 09/03/18 AGE: 38 : [birth year] SEX: M ROOM/BED: D.2207 AUTHOR: JOHNY HORN PHYSICIAN: REFERRING PHYSICIAN: MODESTA SHELTON MD DATE OF SERVICE: 09/09/18 Discharge Plan Patient Name: SINDHU MONSIVAIS Facility: [facility]:[place] : 1980 Planned Disposition: Home or Self Care Anticipated Discharge Date: Discharge Date: 09/08/2018 Expected LOS: 0 Initial Reviewer: [email or web address] Initial Review Date: 09/03/2018 Generated: 09/09/18 6:47 pm Comments DCP- Discharge Planning Updated by [email or web address]: Elicia Cai on 09/08/18 11:[address] Patient Name: SINDHU MONSIVAIS Encounter No: [id number] : 1980 Primary Insurance: [employer] [facility] Anticipated DC Date: Planned Disposition: Home or Self Care External Planned Provider: : DCP follow-up note: Patient and family in agreement with discharge plan. No changes to plan. Case management will follow and assist as needed. Elicia Cai DCP- Discharge Planning Updated by [email or web address]: Elicia Cai on 09/07/18 12:[address] Patient Name: SINDHU MONSIVAIS Admission Status: Elective Accout number: [id number] Admission Date: 09-03-2018 : 1980 Admission Diagnosis:NEOPLASM OF UNSPECIFIED BEHAVIOR OF BRAIN Attending: MODESTA SHELTON Current LOS: 4 Anticipated DC Date: Planned Disposition: Home or Self Care Primary Insurance: [employer] [facility] Discharge Planning Comments: CM met with patient to complete initial dc planning assessment. CM educated patient on the CM role and verbal consent given by patient to complete assessment. Patient lives independently at home with his , Angely. At discharge patient plans to return home and feels this is a safe discharge. 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 CM discussed availability of home health, rehab services, and medical equipment. Patient denied known discharge needs at this time. CM will continue to follow and will assist as needed with dc plans/needs. Drilling Inspector: Elicia Cai DCPIA - Discharge Planning Initial Assessment Updated by [email or web address]: Elicia Cai on 09/07/18 1:40 pm * Is the patient Alert and Oriented? Yes * How many steps to enter\exit or inside your home? * PCP SAV * Pharmacy [facility] * Preadmission Environment Home with Family * ADLs Independent * Equipment None * List name and contact numbers for known caregivers / representatives who currently or will assist patient after discharge: ANGELY () [phone] * Verbal permission to speak to the caregivers and representatives has been obtained from the patient. Yes * Community resources currently utilized None * Additional services required to return to the preadmission environment? No * Can the patient safely return to the preadmission environment? Yes * Has this patient been hospitalized within the prior 30 days at any hospital? No Last DP export: 09/08/18 11:59 a Patient Name: SINDHU MONSIVAIS Page 95830 at 1748 All edits/amendments must be made on the electronic document DICTATION DATE: 09/09/181746 FACE HARDENER: LILI 09/09/181746 RPT#: [id number] DC DATE:09/08/18 STATUS: DIS IN [facility] [address] [place] [address] END OF REPORT
--- NOTE | 2018-09-16 09:17 | OP ---
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 PROCEDURE: Sterotactic suboccipital craniectomy for resection of fourth ventricular brain tumor. SURGEON: Modesta Shelton MD DESCRIPTION AND TECHNIQUE: After induction of general endotracheal anesthesia, the patient was placed in Roy head pins and rolled prone on chest and hip rolls. Registration took place with fiducial markers on the scalp and the Razz navigation system. Next, a scalp incision in a suboccipital craniectomy were planned using the Razz navigation. After sterile prep and drape of the occipital scalp and neck, an infiltration of 1:100,000 epinephrine and 1% lidocaine was infiltrated into the skin. A midline skin incision was carried out approximately 2 cm above the inion to the spinous process of C3. The fascia was divided in the midline and the ligamentum nuchae was divided in the midline until the spinous process of C2 was encountered as well as the inion. The cerebellar convexity was exposed in a subperiosteal manner with a Bovie cautery. The ring of C1 as well as the spinous process of C2 were exposed in subperiosteal manner. Next, the superior and inferior extent of the tumor was explored with the navigation from Razz as well as the lateral right and left margins. Two alejandro holes were created just below the nuchal line. Following this, these alejandro holes were connected with the Midas-José Antonio drill using a foot plate attachment. The midline structures were drilled away with Midas-José Antonio drill with a match head attachment. Following this, the dura was obviously pulsatile and appeared to be relaxed. A Y-shaped incision was made in the dura. The upper end of the wire on either side was placed at the superior lateral corner and the inferior portion of the wire was placed at the ring of C1. Following this, there was an obvious midline tumor between the cerebellar hemispheres. Multiple biopsies were sent to pathology for diagnosis. The diagnosis was consistent with a low-grade astroglial tumor. Next, a perimeter was dissected away from the cerebellum on both sides in a subarachnoid plane. This plane was then followed all the way to the floor of the fourth ventricle. Tumor was adherent to the left lateral floor of the fourth ventricle. This was removed under microscopic illumination with a CUSA aspirator. The tumor sent in multiple fragments to pathology for final diagnosis. Next, several tumor fragments were removed from the floor of the fourth ventricle under microscopic illumination. There appeared to be a gross total resection of the tumor. Meticulous hemostasis was maintained at the resection bed. The dura was reapproximated with interrupted 4-0 Nurolon suture. A Duragen patch was used to repair the dura. A titanium mesh was used to replace the removed skull. The ligament of nuchae was reapproximated with interrupted 2-0 Vicryl suture, the subdermal layer was closed with interrupted 3-0 Vicryl suture in an inverted horizontal mattress style. The skin was closed with asia. A sterile dressing was applied to the wound. The patient was awakened in good condition and taken to recovery neurologically and unchanged. All counts were reported as correct. Estimated blood loss was 150 mL. OPERATIVE REPORT [id number] SINDHU MONSIVAIS TRANSINT:[id number] Voice Confirmation ID: [id number] DOCUMENT ID: [id number] MODESTA HSELTON MD at 0917 CC: [id number] DICTATION DATE: 09/11/18 1519 COMPUTED TOMOGRAPHY TECHNICIAN: 09/11/18 2305 DIS IN 09/08/18 [facility] [address] [place] [address]
== END 2018-09-08 15:50 | disposition home or self-care (01) | DRG 25 ==
LOC: D.SDCHOLD 09-03 05:30 → D.ICU 09-03 05:30 → D.MS 09-03 05:30 → D.SDCHOLD 09-03 07:30 → D.ICU 09-03 16:01 → D.MS 09-04 16:41
PROVIDERS: Anesthesiology; Internal Medicine Gastroenterology; Internal Medicine Nephrology; ADMIT Neurological Surgery
PROC: 00B60ZZ Excision of Cerebral Ventricle, Open Approach (ICD-10-PCS; principal; 2018-09-03 07:30)
DX: C71.7 Malignant neoplasm of brain stem (principal); G93.6 Cerebral edema; G91.1 Obstructive hydrocephalus; I10 Essential (primary) hypertension; E03.9 Hypothyroidism, unspecified; M19.90 Unspecified osteoarthritis, unspecified site; F43.10 Post-traumatic stress disorder, unspecified; F41.8 Other specified anxiety disorders; G47.00 Insomnia, unspecified; R06.6 Hiccough

== ENCOUNTER → 2018-09-02 12:32 | Outpatient (CLI) | payer MEDICAID ==
[2018-07-09 23:19] VITALS: BMI 28.6
[~2018-09-02 12:32] MED LIST changes: +COLACE100 MG PO; +HCTZ25 MG PO; +NEURONTIN 300300 MG PO; +PROTONIX40 MG PO; +ROBAXIN500 MG PO; +THORAZINE10 MG PO; +ZOFRAN ODT4 MG/UDTAB PO
== END | disposition home or self-care (01) ==
LOC: D.MRI 12:32
DX: D49.6 Neoplasm of unspecified behavior of brain (principal)

== ENCOUNTER 2018-09-21 12:59 | Inpatient (IN) | payer MEDICAID ==
[~2018-09-21] VITALS: Ht 180.3 cm; Wt 90.7 kg
[2018-09-21] VITALS (12 sets, daily range): BP systolic 113–135; BP diastolic 74–90; BMI 28.8
[2018-09-21] MEDS ORDERED: THORAZINE25 MG PO (13:48)
--- NOTE | 2018-09-21 14:22 | NUR ---
ROCEPHIN INITIATED AT THIS TIME PER ORDERS. PT RATES PAIN 9/10 AFTER MORPHINE WAS GIVEN. SPOUSE AT BEDSIDE. WILL CONTINUE TO MONITOR.
[2018-09-21 14:53] LABS: ALBUMIN 3.2 g/dL (3.4-5.0); ALKALINE PHOSPHATASE 53 U/L (46-116); ALT (SGPT) 21 U/L (10-68); CALC OSMOLALITY 288 mosm/kg (275-300); CARBON DIOXIDE 27.5 mmol/L (21.0-32.0); CHLORIDE - SERUM 106 mmol/L (98-107); CREATININE - SERUM 1.1 mg/dL (0.6-1.3); GLUCOSE 86 mg/dL (74-106); POTASSIUM - SERUM 3.1 mmol/L (3.5-5.1); PROTEIN - SERUM 6.4 g/dL (6.4-8.2); SODIUM 145 mmol/L (136-145); UREA NITROGEN 14 mg/dL (7-18); eGFR NON AFRICAN AMERICAN 79 mL/min (90-120)
[2018-09-21 14:54] LABS: HEMATOCRIT 43.3 % (42.0-54.0); HEMOGLOBIN 14.3 g/dL (13.5-17.5); MCH 27.2 pg (26.0-34.0); MCV 82.5 fL (80.0-100.0); MEAN PLATELET VOLUME 9.7 fL (7.4-10.4); PLATELET COUNT 313 10x3/uL (130-400); RBC 5.25 10x6/uL (4.20-6.10); RDW 16.3 % (11.5-14.5)
--- NOTE | 2018-09-21 14:59 | NUR ---
VANCOMYCIN INITIATED AT THIS TIME. SPOUSE AT BEDSIDE. WILL CONTINUE TO MONITOR.
[2018-09-21 15:15] LABS: LYMPHOCYTES 2 % (15-50); NEUTROPHILS 98 % (40-80); PLATELET ESTIMATE NORMAL
--- NOTE | 2018-09-21 15:46 | NUR ---
PT HAVING HICCUPS. ON THORAZINE AT HOME FOR HICCUPS. POTASSIUM LEVEL 3.1. PT ASKING TO THORAZINE. DR. SHELTON CALLED AND NOTIFIED THAT PT WAS WANTING HIS THORAZINE AND ALSO TO NOTIFY HIM OF HIS POTASSIUM LEVEL. HE ORDERED THORAZINE 10MG TAB Q4HR PRN. K-DUR 40MEQ X 2 TWO DOSES. 1G OF MAGNESIUM SULFATE X ONE.
--- NOTE | 2018-09-21 15:52 | NUR ---
PT GIVEN THORAZINE 10MG AND POTASSIUM 40MEQ TAB. WILL GIVEN MAGNESIUM WHEN VANCOMYCIN IS FINISHED INFUSING.
--- NOTE | 2018-09-21 16:51 | NUR ---
PT COMPLAINING OF STIFF NECK. CONTINUES TO RATE PAIN 9/10 ON HIS HEAD AT THIS TIME. DR. SHELTON NOTIFIED. ORDERED ROBAXIN 750MG Q 8HR PRN.
--- NOTE | 2018-09-21 17:52 | NUR ---
COMPLAINTS OF THROBBING PAIN ON HIS HEAD. MORPHINE 4MG IV GIVEN. ZOFRAN GIVEN TO PREVENT NAUSEA FROM MORPHINE. PT REPORTS SOME DISCOMFORT ON LLQ. WILL CONTINUE TO MONITOR.
--- NOTE | 2018-09-21 18:45 | NUR ---
DR. SHELTON AT BEDSIDE. SPOUSE NOTIFIED THAT DR. SHELTON WAS IN. ALLOWED BACK IN ROOM WITH PATIENT.
--- NOTE | 2018-09-21 19:00 | NUR ---
REPORT RECEIVED. RECEIVED PT SITTING UP IN BED AWAKE AND ALERT. ORIENTED X 4. SPEECH CLEAR AND APPROPRIATE. STONE DECORATOR = BILAT. EYES PERRL. COMPAINS OF 10/10 PAIN IN HEAD, DESCRIBES PAIN SHARP AND THROBBING. MONITORS CONNECTED TO PT WITH ALARMS SET. SR UP X 2. CALL LIGHT IN REACH AND PT ABLE TO UTILIZE TO MAKE NEEDS KNOWN. ABLE TO REPOSITION SELF IN BED. HOB 45 DEGREES
[2018-09-21 20:19] LABS: APPEARANCE - CSF XANTHOCHROMIC; GLUCOSE - CSF 31 MG/DL (40-75); PROTEIN - CSF 123 MG/DL (12-60); RBC - CSF 120 cmm (0-0)
[2018-09-21 20:29] LABS: LYMPH - CSF 6 % (40-80); MONO - CSF 19 % (15-45); NEUT - CSF 75 % (0-6)
--- NOTE | 2018-09-21 21:00 | NUR ---
SITTING UP IN BED AWAKE AND ALERT. ORIENTED X 4 SPEECH CLEAR. VSS. NO DISTRESS OBSERVED. CALL LIGHT IN REACH
--- NOTE | 2018-09-21 23:00 | NUR ---
REASSESSMENT COMPLETED PER FLOWSHEET. NO CHANGES OBSERVED. CALL LIGHT IN REACH.
[2018-09-22] VITALS (24 sets, daily range): BP systolic 100–124; BP diastolic 64–87; Ht 180.3 cm; Wt 90.7 kg
--- NOTE | 2018-09-22 01:00 | NUR ---
RESTING WITH EYES CLOSED, EASILY ROUSED AND ALERT. ORIENTED X 4. SPEECH CLEAR. VSS. NO DISTRESS OBSERVED. CALL LIGHT WITHIN REACH.
--- NOTE | 2018-09-22 03:00 | NUR ---
REASSESSMENT COMPLETED PER FLOW SHEET WITH NO CHANGES OBSERVED. CALL LIGHT IN REACH.
[2018-09-22 04:30] LABS: BASOPHILS 0 % (0-2); EOSINOPHILS 0.1 % (0-7); HEMATOCRIT 39.1 % (42.0-54.0); HEMOGLOBIN 12.7 g/dL (13.5-17.5); IMMATURE GRANULOCYTES 0.3 % (0-5); LYMPHOCYTES 9.5 % (15-50); MCH 26.7 pg (26.0-34.0); MCHC 32.5 g/dL (31.0-37.0); MCV 82.3 fL (80.0-100.0); MEAN PLATELET VOLUME 9.5 fL (7.4-10.4); MONOCYTES 5.9 % (2-11); NEUTROPHILS 84.2 % (40-80); RBC 4.75 10x6/uL (4.20-6.10); RDW 16.6 % (11.5-14.5)
[2018-09-22 04:41] LABS: PLATELET COUNT 243 10x3/uL (130-400); WBC 17.1 10x3/uL (4.8-10.8)
[2018-09-22 04:58] LABS: ALBUMIN 2.6 g/dL (3.4-5.0); ALKALINE PHOSPHATASE 51 U/L (46-116); ALT (SGPT) 16 U/L (10-68); BILIRUBIN - TOTAL 0.61 mg/dL (0.2-1.3); CALC OSMOLALITY 278 mosm/kg (275-300); CALCIUM 7.8 mg/dL (8.5-10.1); CHLORIDE - SERUM 104 mmol/L (98-107); GLUCOSE 90 mg/dL (74-106); PROTEIN - SERUM 5.6 g/dL (6.4-8.2); SODIUM 140 mmol/L (136-145); UREA NITROGEN 12 mg/dL (7-18); eGFR NON AFRICAN AMERICAN 88 mL/min (90-120)
--- NOTE | 2018-09-22 05:00 | NUR ---
RESTING WITH EYE CLOSED, EASILY ROUSED AND ALERT. ORIENTED X 4. SPEECH CLEAR VSS. NO DISTRESS OBSERVED. CALL LIGHT IN REACH. AT BEDSIDE.
[2018-09-22 05:07] LABS: POTASSIUM - SERUM 3.8 mmol/L (3.5-5.1)
--- NOTE | 2018-09-22 07:00 | NUR ---
REC'D REPORT AND RESUMED CARE, AAO, O2 VIA RA, SAT 97%, DARCY TO BACK OF HEAD, CDI, RIGHT FA PIV WITH NS INFUSING AT 10 CC/HR, ASSESSMENT COMPLETE PER FLOWSHEET, ICE CHIPS TO BEDSIDE, ORIENTED X4, CALL LIGHT IN REACH, NO NEEDS AT THIS TIME
--- NOTE | 2018-09-22 07:45 | NUR ---
C/O GALO 01/27, MORPHINE 4MG IVP GIVEN PER MAR ORDER
--- NOTE | 2018-09-22 08:35 | NUR ---
C/O HICCUPS, ASKING FOR DOSE OF THORAZINE 10MG, GIVEN PER MAR FLOWSHEET
--- NOTE | 2018-09-22 09:49 | NUR ---
CALLED TO ROOM, C/O PAIN 7/10 IN HEAD, MORPHINE 4 MG IV AND 4 MG ZOFRAN GIVEN PRE MED FOR NAUSEA, 400 CC URINE EMPTIED FROM URINAL
--- NOTE | 2018-09-22 13:07 | NUR ---
MORPHINE DIRECTOR PHARMACOVIGILANCE INITITATED, 1MG Q6 MIN, HOME MEDS RESTARTED, 300 MG NEUROTIN AND 75 MCG LEVOTHYROXINE GIVEN PER ORDER
--- NOTE | 2018-09-22 13:30 | NUR ---
KUB COMPLETED PER ORDER, OOB TO CHAIR WITH STANDBY ASSIST, TOLERATED TRANSFER WITHOUT DIFFICULTY
--- NOTE | 2018-09-22 15:00 | NUR ---
AAO, VSS, NO ACUTE CHANGE FROM PREVIOUS ASSESSMENT, NO C/O PAIN, DIANETICIST IN USE, CALL LIGHT IN REACH REPORT GIVEN TO ANDERS LEDESMA
--- NOTE | 2018-09-22 17:06 | NUR ---
DINNER TRAY GIVEN. ATE 80% DENIES NEEDS WILL CONTNIUE TO MONITOR
--- NOTE | 2018-09-22 17:07 | MORECARE ---
CASE MANAGEMENT DISCHARGE SUMMARY PATIENT: SINDHU MONSIVAIS UNIT: [id number] ADM DATE: 09/21/18 AGE: 38 : 76 SEX: M ROOM/BED: D.2306 AUTHOR: JOHNY HORN PHYSICIAN: REFERRING PHYSICIAN: MODESTA SHELTON MD DATE OF SERVICE: 09/22/18 Discharge Plan Patient Name: SINDHU MONSIVAIS Facility: [facility]:[place] : 1980 Planned Disposition: Home Anticipated Discharge Date: Discharge Date: Expected LOS: Initial Reviewer: [email or web address] Initial Review Date: 09/22/2018 Generated: 09/22/18 6:07 pm Patient Name: SINDHU MONSIVAIS Page 39826 at 1707 All edits/amendments must be made on the electronic document DICTATION DATE: 09/22/181705 HOTEL CONTROLLER: LILI 09/22/181705 RPT#: [id number] DC DATE: STATUS: ADM IN [facility] [address] [place] [address] END OF REPORT
--- NOTE | 2018-09-22 19:00 | NUR ---
REPORT RECEIVED. RECEIVED PT SITTING UP IN BED. AWAKE AND ALERT. ORIENTED X 4. SPEECH CLEAR AND APPROPRIATE. COMPLAINS OF HEADACHE 6/10 AND DESCRIBES SHARP PAIN. REPORTS NECK STIFFNESS IMPROVED FROM YESTERDAY. MONITORS CONNECTED TO PATIENT WITH ALARMS SET. IV FLUIDS/TUBING DATED/LABELED AND CURRENT. VSS. NO DISTRESS OBSERVED. SR UP X 2
--- NOTE | 2018-09-22 21:00 | NUR ---
AWAKE AND ALERT. ORIENTED X4. SPEECH CLEAR AND APPROPRIATE. VISITING WITH AT BEDSIDE. PO MEDS TAKEN WITHOUT DIFF. VSS. NO DISTRESS OBSERVED. CALL LIGHT IN REACH.
[2018-09-23] VITALS (23 sets, daily range): BP systolic 105–133; BP diastolic 57–86
--- NOTE | 2018-09-23 01:00 | NUR ---
RESTING WITH EYES CLOSED, EASILY ROUSED AND ALERT. NO DISTRESS OBSERVED
--- NOTE | 2018-09-23 03:00 | NUR ---
RESTING WITH EYES CLOSED. EASILY ROUSED AND ALERT. ORIENTED X 4. SPEECH CLEAR AND APPROPRIATE. VSS. NO DISTRESS OBSERVED. CALL LIGHT IN REACH.
[2018-09-23 05:00] LABS: BASOPHILS 0 % (0-2); EOSINOPHILS 0.5 % (0-7); HEMATOCRIT 36.8 % (42.0-54.0); HEMOGLOBIN 11.7 g/dL (13.5-17.5); IMMATURE GRANULOCYTES 0.2 % (0-5); LYMPHOCYTES 14.8 % (15-50); MCH 26.6 pg (26.0-34.0); MCHC 31.8 g/dL (31.0-37.0); MCV 83.6 fL (80.0-100.0); MEAN PLATELET VOLUME 9.5 fL (7.4-10.4); MONOCYTES 6.3 % (2-11); NEUTROPHILS 78.2 % (40-80); PLATELET COUNT 226 10x3/uL (130-400); RDW 16.5 % (11.5-14.5); WBC 13.1 10x3/uL (4.8-10.8)
--- NOTE | 2018-09-23 05:00 | NUR ---
RESTING WITH EYES CLOSED. EASILY ROUSED AND ALERT. ORIENTED X 3. SPEECH CLEAR. VSS. NO DISTRESS OBSERVED
[2018-09-23 05:27] LABS: ALBUMIN 2.3 g/dL (3.4-5.0); ALKALINE PHOSPHATASE 39 U/L (46-116); ALT (SGPT) 14 U/L (10-68); BILIRUBIN - TOTAL 0.35 mg/dL (0.2-1.3); CALC OSMOLALITY 275 mosm/kg (275-300); CALCIUM 7.5 mg/dL (8.5-10.1); CARBON DIOXIDE 29.5 mmol/L (21.0-32.0); CHLORIDE - SERUM 102 mmol/L (98-107); CREATININE - SERUM 0.9 mg/dL (0.6-1.3); GLUCOSE 89 mg/dL (74-106); POTASSIUM - SERUM 3.4 mmol/L (3.5-5.1); PROTEIN - SERUM 5.2 g/dL (6.4-8.2); SODIUM 139 mmol/L (136-145); UREA NITROGEN 11 mg/dL (7-18); eGFR NON AFRICAN AMERICAN > 90 mL/min (90-120)
--- NOTE | 2018-09-23 07:00 | NUR ---
REPORT RECEIVED. ASSESSMENT COMPLETE PER FLOW SHEET. REFER FOR FINDINGS. VSS. PT DENIES NEEDS. WILL CONTINUE TO MONITOR
--- NOTE | 2018-09-23 09:20 | NUR ---
PT LINOLEUM TILE FLOOR LAYER LIGHT. ICE CHIPS GIVEN PER REQUEST. DENIES FURTHER NEEDS WILL CONTINUE TO MONITOR
--- NOTE | 2018-09-23 09:55 | NUR ---
Nutrition follow-up: Diet: Regular PO intake ~80% of meals Labs reviewed Wt: 204# RDN following.
--- NOTE | 2018-09-23 11:00 | NUR ---
REASSESSMENT COMPLETE PER FLOW SHEET. VSS. NO NEW CHANGES WILL CONTNIUE TOMONITOR
--- NOTE | 2018-09-23 13:18 | NUR ---
PT RESTING COMFORTABLY FAMILY AT BEDSIDE. DENIES NEEDS
--- NOTE | 2018-09-23 15:00 | NUR ---
REASSESSMENT COMPLETE PER FLOW SHEET. VSS NO NEW CHANGES WILL CONTINUE TO MONITOR
--- NOTE | 2018-09-23 17:10 | NUR ---
FAMILY AT BEDSIDE, UPDATE GIVEN
[2018-09-24] VITALS (23 sets, daily range): BP systolic 95–140; BP diastolic 59–94
--- NOTE | 2018-09-24 03:15 | NUR ---
REASSESSMENT COMPLETE PATIENT DENIES ANY NEEDS AT THIS TIME. ICE CHIPS GIVEN. INCISION WITHOUT DRAINAGE NOTED AND DARYC INTACT. CALL LIGHT WITHIN REACH, BED IN LOW POSITION.
[2018-09-24 04:23] LABS: BASOPHILS 0 % (0-2); EOSINOPHILS 1.8 % (0-7); HEMATOCRIT 37.6 % (42.0-54.0); HEMOGLOBIN 12.1 g/dL (13.5-17.5); IMMATURE GRANULOCYTES 0.2 % (0-5); MCH 26.6 pg (26.0-34.0); MCHC 32.2 g/dL (31.0-37.0); MCV 82.6 fL (80.0-100.0); MEAN PLATELET VOLUME 9.3 fL (7.4-10.4); MONOCYTES 6.1 % (2-11); NEUTROPHILS 73.9 % (40-80); PLATELET COUNT 209 10x3/uL (130-400); RBC 4.55 10x6/uL (4.20-6.10)
[2018-09-24 04:38] LABS: WBC 9.2 10x3/uL (4.8-10.8)
[2018-09-24 04:46] LABS: ALBUMIN 2.2 g/dL (3.4-5.0); ALKALINE PHOSPHATASE 43 U/L (46-116); ALT (SGPT) 13 U/L (10-68); BILIRUBIN - TOTAL 0.31 mg/dL (0.2-1.3); CALC OSMOLALITY 276 mosm/kg (275-300); CALCIUM 7.7 mg/dL (8.5-10.1); CARBON DIOXIDE 34.4 mmol/L (21.0-32.0); CHLORIDE - SERUM 101 mmol/L (98-107); GLUCOSE 105 mg/dL (74-106); POTASSIUM - SERUM 3.2 mmol/L (3.5-5.1); PROTEIN - SERUM 5.6 g/dL (6.4-8.2); SODIUM 139 mmol/L (136-145); UREA NITROGEN 9 mg/dL (7-18); eGFR NON AFRICAN AMERICAN 88 mL/min (90-120)
--- NOTE | 2018-09-24 07:00 | NUR ---
REC'D REPORT AND RESUMED CARE, AAO, VSS, DENIES PAIN, MASH FILTER OPERATOR IN USE, ASSESSMENT COMPLETE PER FLOWSHEET, CALL LIGHT IN REACH, RAFAEL NEEDS AT THIS TIME
--- NOTE | 2018-09-24 07:45 | NUR ---
BREAKFAST TRAY TO BEDSIDE, INDEPENDENT WITH SET UP AND EATING
--- NOTE | 2018-09-24 08:00 | NUR ---
FAMILY AT BEDSIDE, STATUS UPDATED, NO NEEDS AT THIS TIME
--- NOTE | 2018-09-24 09:00 | NUR ---
MORNING MEDS GIVEN PER SEP FLOWSHEET
--- NOTE | 2018-09-24 11:00 | NUR ---
RESTING WITH NO SIGNS OF DISTRESS, VSS, CONTINUES WITH CANE WEIGHER IN USE, DENIES PAIN AT THIS TIME, NO ACUTE CHANGE FROM PREVIOUS
--- NOTE | 2018-09-24 14:30 | NUR ---
BATH AND LINEN CHANGE COMPLETED, TOLERATED WITHOUT DIFFICULTY, UP IN CHAIR, AT BEDSIDE, NO NEEDS AT THIS TIME
--- NOTE | 2018-09-24 17:01 | NUR ---
DINNER TRAY TO BEDSIDE, INDEPENDENT WITH SET UP AND EATING
--- NOTE | 2018-09-24 18:18 | NUR ---
DR SHELTON AT BEDSIDE, DISCUSSION WITH PATIENT RE: SHUNT REMOVAL, TO BE DONE ON 09/25
--- NOTE | 2018-09-24 19:30 | NUR ---
SHIFT ASSESSMENT COMPLETE, PER NURSING FLOWSHEET, PATIENT INDEPENDENTLY REPOSITIONS SELF, C/L IN REACH
--- NOTE | 2018-09-24 21:00 | NUR ---
PATIENT WATCHING TV, NO NEEDS VOICED OR NOTED AT THIS TIME
--- NOTE | 2018-09-24 23:00 | NUR ---
RE-ASSESSMENT COMPLETE, PER NURSING FLOWSHEET, PATIENT CONTINUES TO REPOSITION SELF, CONTINUE POC
[2018-09-25] VITALS (17 sets, daily range): BP systolic 105–147; BP diastolic 67–106
--- NOTE | 2018-09-25 01:00 | NUR ---
PATIENT SLEEPING, NO DISTRESS NOTED, VSS, WILL CONTINUE TO MONITOR
--- NOTE | 2018-09-25 03:00 | NUR ---
RE-ASSESSMENT COMPLETE, PER NURSING FLOWSHEET, PATIENT INDEPENDENTLY REPOSITIONS SELF, VSS, C/L IN REACH
[2018-09-25 03:08] LABS: BASOPHILS 0.1 % (0-2); EOSINOPHILS 2.6 % (0-7); HEMATOCRIT 39.4 % (42.0-54.0); HEMOGLOBIN 12.6 g/dL (13.5-17.5); IMMATURE GRANULOCYTES 0.3 % (0-5); LYMPHOCYTES 16.8 % (15-50); MCH 26.3 pg (26.0-34.0); MCV 82.3 fL (80.0-100.0); MEAN PLATELET VOLUME 9.6 fL (7.4-10.4); MONOCYTES 8.1 % (2-11); NEUTROPHILS 72.1 % (40-80); PLATELET COUNT 183 10x3/uL (130-400); RBC 4.79 10x6/uL (4.20-6.10); RDW 15.5 % (11.5-14.5); WBC 9.1 10x3/uL (4.8-10.8)
[2018-09-25 03:43] LABS: ALBUMIN 2.1 g/dL (3.4-5.0); ALKALINE PHOSPHATASE 47 U/L (46-116); ALT (SGPT) 14 U/L (10-68); BILIRUBIN - TOTAL 0.21 mg/dL (0.2-1.3); CALC OSMOLALITY 282 mosm/kg (275-300); CALCIUM 7.8 mg/dL (8.5-10.1); CARBON DIOXIDE 31.1 mmol/L (21.0-32.0); CHLORIDE - SERUM 102 mmol/L (98-107); CREATININE - SERUM 1.1 mg/dL (0.6-1.3); GLUCOSE 121 mg/dL (74-106); PROTEIN - SERUM 5.5 g/dL (6.4-8.2); SODIUM 142 mmol/L (136-145); UREA NITROGEN 10 mg/dL (7-18); eGFR NON AFRICAN AMERICAN 79 mL/min (90-120)
[2018-09-25 03:44] LABS: POTASSIUM - SERUM 3.9 mmol/L (3.5-5.1)
--- NOTE | 2018-09-25 05:00 | NUR ---
PATIENT WAKES UPON ENTERING ROOM, NO NEEDS VOICED OR NOTED AT THIS TIME, CONTINUE POC
--- NOTE | 2018-09-25 09:30 | NUR ---
Nutrition follow-up: Diet: Regular PO intake 100% of last 3 meals Labs reviewed WT: 204# Waiting on shunt removal 2/2 source of infection RDN following.
--- NOTE | 2018-09-25 16:34 | HP ---
PATIENT: SINDHU KELLY MEDICAL RECORD: [id number] ACCOUNT: [id number] LOCATION:[facility] D.2306 : 76 ADMISSION DATE: 09/21/18 PCP: HUDSON ANG DO HISTORY AND PHYSICAL EXAMINATION CHIEF COMPLAINT: Headache and fever and chills. HISTORY OF PRESENT ILLNESS: Mr. 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 He had a second operation for elective resection of this brain tumor on September 03. Postoperatively, his course was complicated by intractable hiccups with epigastric pain. 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 He was ultimately discharged home with follow up with gastroenterology for epigastric pain and possible hiatal hernia. Over the weekend, he developed chills. No fever, but sudden severe headache the morning of admission. Upon evaluation at the walk-in clinic, a head CT revealed slight ventriculomegaly, status post resection of a subependymoma. No obvious intracranial complication. A shunt tap at that time showed a clear CSF, was sent for protein, glucose, cell count, and culture. I used after shunt tap was accomplished with an IM injection of ceftriaxone was given 1 gram. He was sent to the hospital for direct admission, vancomycin and ceftriaxone were started IV today after evaluation by Dr. Hoover. PAST MEDICAL HISTORY: NEUROLOGICAL HISTORY: Brain tumor, status post SERVICES CLERK shunt. ENT: None. ENDOCRINE: Thyroid history, hypothyroidism. CARDIOVASCULAR HISTORY: Hypertension. RESPIRATORY HISTORY: None. CANCER HISTORY: None. IMMUNE DISORDERS: None. SYSTEMS: None. GASTROINTESTINAL HISTORY: None. MUSCULOSKELETAL HISTORY: Arthritis, herniated discs, and lumbar spine. SKIN HISTORY: None. REPRODUCTIVE SYSTEM: None. PSYCHOLOGICAL HISTORY: Depression, anxiety, and PTSD. PAST SURGICAL HISTORY: Myringotomy and tubes, left knee surgery times 2, vasectomy, wisdom teeth removed, right carpal tunnel surgery times 2, a SERVICES CLERK shunt placement in left carpal tunnel, status post fourth ventricular brain tumor resection on September 03. ALLERGIES: No known drug allergies. HOME MEDICATIONS: Gabapentin 300 mg p.o. 4 times a day, Zofran 4 mg p.o. q.6 hours p.r.n. nausea, Protonix 40 mg p.o. daily, docusate sodium, Colace 200 mg p.o. at bedtime, Robaxin 500 mg p.o. q.8. hours. P.r.n. medications are Thorazine 25 mg p.o. t.i.d., levothyroxine 75 mcg p.o. daily, lovastatin 40 mg p.o. daily, and Ambien 10 mg p.o. at bedtime p.r.n. FAMILY HISTORY: Parents had cardiovascular disease and cancer. Siblings: None known. Natural child: None known. HISTORY AND PHYSICAL [id number] SINDHU KELLY SOCIAL HISTORY: Never tobacco user. Alcohol, none. Recreational drug use none. REVIEW OF SYSTEMS: GENERAL: Fatigue and weakness. Negative anxiety, negative depression. BREAKDOWN WORKER: Headache. Negative dizziness, negative numbness, negative mental status. CARDIOVASCULAR: Negative chest pain, negative palpitations. Negative orthopnea negative lower extremity edema. INFECTIOUS DISEASE: Positive chills. Positive sweats. Negative sore throat. Negative fever. GASTROINTESTINAL: Negative nausea. Negative emesis. Negative abdominal pain. Positive epigastric pain. Negative constipation. GENITOURINARY: No acute kidney disease. No chronic kidney disease, no dialysis. No dysuria. Negative Leon. HEME: Negative epistaxis. Negative hemoptysis. Negative hematuria. Negative GI bleed. Negative melena. ENDOCRINE: Negative thirsty. Negative sweaty. Negative tremor. SKIN: No rash or lesions. Incision clean, dry, and intact. PULMONARY: Negative short of breath. Negative cough, negative sputum. MUSCULOSKELETAL: Negative pain, negative misalignment. Negative stiffness. Negative joint swelling. Negative decreased range of motion. Negative functional deficit. PHYSICAL EXAMINATION: VITAL SIGNS: Temperature 101.5, pulse 109, respirations 24, blood pressure 130/80, pulse ox 98. GENERAL APPEARANCE: Alert, awake, conversant. MENTAL STATUS: Normal, oriented, in mild distress due to pain. HEENT: Anicteric. Mucous membranes moist. Pupils reactive to light. Sclerae are clear. Extraocular movements intact. Fair dentition. Shunt bulb palpable, soft with brisk egress of CSF and a rapid refilling of the shunt reservoir. NECK: Nontender, no lymphadenopathy, no masses or swelling. No thyromegaly. NECK: Supple. No meningismus. CARDIOVASCULAR: Shows a normal capillary refill. HEART: Regular rate and rhythm without murmur, rub, or gallop. No pedal edema. Peripheral pulses, right radial present. Left radial present. Right dorsalis pedis present. Left dorsalis pedis present. RESPIRATORY SYSTEM: No acute distress. Normal breath sounds. No wheezes, no rhonchi, no crackles or stridor. No retractions. ABDOMEN: Soft, nontender. No hepatosplenomegaly. No distention, no masses. Positive bowel sounds. No rebound or tenderness. GENITOURINARY: Deferred. NEUROLOGIC: Alert and oriented times 3. Cranial nerves II through XII intact. No gross deficits. EXTREMITIES: Normal inspection. Capillary refill normal. No swelling, nontender. No edema. SKIN: Dry, intact. No rash or lesions, incision on the back of his head well approximated with asia. No expressible drainage. LABORATORY DATA: Showed an elevated white count of 23,000. Potassium is 3.1, otherwise within normal limits. Head CT shows mild ventriculomegaly. Shunt tap revealed clear CSF drained without difficulty. Opening pressure 1 cm water, closing pressure 0 cm of water. CSF sent to the lab for culture and sensitivity, protein, glucose and cell count. HISTORY AND PHYSICAL [id number] SINDHU KELLY Infectious disease has been consulted. Dr. Reid is starting the patient on vancomycin and ceftriaxone. We will monitor cultures and then continue antibiotics. TRANSINT:[id number] Voice Confirmation ID: [id number] DOCUMENT ID: [id number] MODESTA SHELTON MD at 1634 CC: [id number] DICTATION DATE: 09/21/181910 DIGITAL FORENSIC ANALYST: 09/21/182111 ADM IN [facility] [address] [place] [address]
--- NOTE | 2018-09-25 18:33 | NUR ---
PATIENT RECEIVED TO ROOM ALERT AND ORIENTEDX3. 17 DARCY NOTED TO OCCIPITAL LOBE OF SCALP WITH NO S/S OF INFECTION NOTED. IVF AND ORTHOTIC ASSISTANT INFUSING AT PRESCRIBED RATE. ORIENTED TO USE OF CALL LIGHT FOR ASSIST
[2018-09-26] VITALS: BP 131/76
[2018-09-26 03:00] VITALS: BP 130/68
--- NOTE | 2018-09-26 07:01 | NUR ---
PT IN BED IN LOW FOWLERS POSITION. RESPIRATIONS EVEN AND UNLABORED. VS STABLE AND AFEBRILE. NO VISUAL CUES OF DISTRESS NOTED. WILL CONTINUE TO MONITOR.
--- NOTE | 2018-09-26 07:15 | NUR ---
REC'D IN BED AWAKE AND ALERT. RESP EVEN AND UNLABORED WITH NO DISTRESS. CAN EXPRESS NEEDS AND WANT. NO C/O NOTED OR VOICED. ASSESSMENT COMPLETED. C/L IN REACH AT BEDSIDE.
[2018-09-26 07:19] LABS: BASOPHILS 0.1 % (0-2); EOSINOPHILS 2.5 % (0-7); HEMOGLOBIN 12.9 g/dL (13.5-17.5); IMMATURE GRANULOCYTES 0.2 % (0-5); LYMPHOCYTES 14.3 % (15-50); MCH 26.6 pg (26.0-34.0); MCHC 33.1 g/dL (31.0-37.0); MCV 80.4 fL (80.0-100.0); MEAN PLATELET VOLUME 9.8 fL (7.4-10.4); MONOCYTES 7.4 % (2-11); NEUTROPHILS 75.5 % (40-80); PLATELET COUNT 214 10x3/uL (130-400); RBC 4.85 10x6/uL (4.20-6.10); RDW 15.4 % (11.5-14.5); WBC 8.4 10x3/uL (4.8-10.8)
[2018-09-26 07:32] LABS: ALBUMIN 2.3 g/dL (3.4-5.0); ALKALINE PHOSPHATASE 37 U/L (46-116); BILIRUBIN - TOTAL 0.33 mg/dL (0.2-1.3); CALC OSMOLALITY 279 mosm/kg (275-300); CALCIUM 7.9 mg/dL (8.5-10.1); CARBON DIOXIDE 26.5 mmol/L (21.0-32.0); CHLORIDE - SERUM 104 mmol/L (98-107); CREATININE - SERUM 0.9 mg/dL (0.6-1.3); GLUCOSE 90 mg/dL (74-106); POTASSIUM - SERUM 3.4 mmol/L (3.5-5.1); PROTEIN - SERUM 5.6 g/dL (6.4-8.2); SODIUM 141 mmol/L (136-145); UREA NITROGEN 9 mg/dL (7-18); eGFR NON AFRICAN AMERICAN > 90 mL/min (90-120)
[2018-09-26 07:33] LABS: ALT (SGPT) 20 U/L (10-68)
[2018-09-26 09:50] VITALS: BP 132/87
[2018-09-26 13:29] VITALS: BP 124/81
[2018-09-26 16:21] VITALS: BP 126/84
--- NOTE | 2018-09-26 17:00 | NUR ---
I have reviewed this patient and I concur with the Shift Assessment completed by the Licensed Practical Nurse today this shift.
[2018-09-26 20:00] VITALS: BP 124/76
[2018-09-27] VITALS (16 sets, daily range): BP systolic 120–142; BP diastolic 79–99
--- NOTE | 2018-09-27 10:57 | NUR ---
1025 - DR WILDE CONSULTED FOR A-FIB AND TACHYCARDIA. ORDERS RECEIVED AND READ BACK TO DR WILDE. GTT INITIATED AT 1152.
--- NOTE | 2018-09-27 11:03 | NUR ---
PT ADMITTED TO ICU ROOM 2301. DR WILDE SPECIFIED PCU, NO BED AVAILABLE PER MARITO MORALES SUPERVISER.
--- NOTE | 2018-09-27 11:30 | NUR ---
PT TRANSERRED VIA BED FROM OPERATION ROOM - PT AA&O X 4 - CPOC
--- NOTE | 2018-09-27 11:50 | NUR ---
ASSESSMENT COMPLETE - FAMILY IN ROOM - ANSWERED ALL QUESTIONS TO FAMILY'S SATISFACTION - CPOC
--- NOTE | 2018-09-27 13:00 | NUR ---
DR. WILDE AT [facility] FOR ASSESMENT - ORDERED BETAPASE AND TO MONITOR WHEN PATIENT CONVERTS TO NSR TO D/C CARDICOURTNEYM DRIP - INFORMED PT OF ABOVE - CPOC AND REPORT NEEDED.
--- NOTE | 2018-09-27 13:46 | NUR ---
CALLED PHARMACY TO RELEASE TRAMADOL RX - PT ASKED FOR ZOFRAN WELL - SEE TRESA
[2018-09-27 13:53] LABS: GLUCOSE - CSF 50 MG/DL (40-75); PROTEIN - CSF 73 MG/DL (12-60)
--- NOTE | 2018-09-27 14:07 | NUR ---
PT CONVERTED TO NSR - WILL MONITOR CLOSELY TO STOP CARDIZEM MD ORDERED -
[2018-09-27 15:12] LABS: APPEARANCE - CSF COLORLESS; RBC - CSF 11 cmm (0-0)
--- NOTE | 2018-09-27 19:05 | NUR ---
Received patient resting in bed with eyes open, assessment completed per flowsheet. Patient AO x4, calm and cooperative. S1/S2 noted NSR on telemetry with HR 82, rythmic and regular. Breathing is even/unlabored on room air with O2 sat 96%, lung sounds clear throughout. Abdomen is soft/flat with bowel sounds active x4, non-tender. All pulses palpable with cap refill < 3 sec, skin warm/dry with full ROM all extremities. ATHLETICS TEACHER in use for pain mgmt, denies further needs at this time. See flowsheet for details, all VSS and will continue to monitor.
--- NOTE | 2018-09-27 21:00 | NUR ---
Patient sitting in bed with family at bedside, discussed treatment plans with all questions answered to satisfaction. TRAFFIC RECORDER in use for pain mgmt, HS meds given without difficulty. Denies further needs at this time, all VSS and will continue to monitor.
--- NOTE | 2018-09-27 22:59 | NUR ---
Reassessment completed per flowsheet, no changes from previous assessment. R anterior scalp incision x2 dressing CDI, patient AO x4 calm and cooperative. TEST DESIGN ENGINEER in use for pain mgmt, all pulses palpable with cap refill < 3 sec. No further needs at this time, see flowsheet for details. All VSS and will continue to monitor.
[2018-09-28] VITALS (15 sets, daily range): BP systolic 102–142; BP diastolic 65–99
--- NOTE | 2018-09-28 01:00 | NUR ---
Patient sleeping in bed with eyes closed, no s/s of distress at this time. Patient awakens easily, answers appropriately. Denies further needs at this time, all VSS and will continue to montior.
--- NOTE | 2018-09-28 03:00 | NUR ---
Reassessment completed per flowsheet, no changes from previous assessment. Patient AO x4, answers appropriately. R anterior scalp incision, dressing CDI. All pulses palpable with cap refill < 3 sec, skin warm/dry. COMPUTATIONAL PHYSICIST in use for pain mgmt, denies further needs at this time. See flowsheet for details, all VSS and will continue to monitor.
--- NOTE | 2018-09-28 05:00 | NUR ---
Patient resting in bed with eyes closed, no s/s of distress at this time. R anterior scalp incision dressing CDI, patient awakens easily/answers appropriately. PURSE SEINING HAND in use for pain mgmt, denies further needs at this time and will continue to monitor.
--- NOTE | 2018-09-28 07:00 | NUR ---
REPORT RECEIVED. ASSESSMENT COMPLETE PER FLOW SHEET. VSS. DENIES NEEDS WILL CONTINUE TO MONITOR
--- NOTE | 2018-09-28 07:44 | NUR ---
Nutrition follow-up: Diet: Regular; has been NPO for shunt removal PO intake ~50% of meals; pt with no BM charted since admit and now with laxatives ordered. labs reviewed Wt: 200# Hiccups RDN following.
--- NOTE | 2018-09-28 09:08 | NUR ---
PT AT BEDESIDE. GIVEN UDPATE.
--- NOTE | 2018-09-28 10:54 | CN ---
PATIENT NAME:SINDHU MONSIVAIS MEDICAL RECORD: [id number] : 76 LOCATION:[id number] ADMIT DATE: 09/21/18 ACCOUNT: [id number] CONSULTING PHYSICIAN: BRANDON WILDE MD REFERRING PHYSICIAN: MODESTA DOTY MD DATE OF CONSULTATION: 09/27/2018 DIAGNOSES: 1. Atrial fibrillation with rapid ventricular response. 2. Postop DEVULCANIZER CHARGER shunt. HISTORY: This is a gentleman with no cardiac history, who had a DEVULCANIZER CHARGER shunt done by Dr. Doty. After the operation, he went into atrial fibrillation. He is in atrial fibrillation with rapid ventricular response. He does not feel palpitations, chest pain, or any symptomatology from cardiac standpoint. No cardiac history. PHYSICAL EXAMINATION: GENERAL APPEARANCE: Well-nourished, well-developed, appears stated age. Level of distress, comfortable. PSYCHIATRIC: Mental status, alert, normal affect. Orientation, oriented to time, place and person. EYES: Lids and conjunctiva, noninjected. No discharge, no pallor. ENT: Lips, teeth, gums, normal dentition. Oropharynx, no cyanosis, no pallor. NECK: Carotid arteries, bilateral normal upstroke, no bruits, no thrills. JUGULAR VEINS: No jugular venous pressure or distention. CERVICAL LYMPH NODES: Nontender, nonenlarged. THYROID: Not enlarged. Nontender. No nodules. LUNGS: Respiratory effort, unlabored. CHEST: Normal curvature. No thoracic deformity. No chest wall tenderness. Percussion, resonant. Auscultation, clear. No wheezes, no rales, no rhonchi. CARDIOVASCULAR: Precordial exam, nondisplaced. No heaves or pericardial thrills. Rate and rhythm, regular. Heart sounds, normal S1, normal S2. No S3, no gallop, no rub. Systolic murmur, not heard. Diastolic murmur, not heard. EXTREMITIES: No cyanosis, no edema. Peripheral pulses, full and equal in all extremities, except as noted. No bruits appreciated. ABDOMEN: Soft, nondistended. Normal aorta. No bruit. Nontender. No masses. Liver, nontender, no hepatomegaly. Spleen, nontender, no splenomegaly. MUSCULOSKELETAL: No joint tenderness. No joint swelling. No erythema. NEUROLOGICAL: Normal gait, normal strength, normal tone. SKIN: Warm and dry. OVERALL IMPRESSION: Atrial fibrillation with rapid ventricular response. At this time, we will put him on IV Cardizem and then start p.o. sotalol. We will get an echocardiogram. TRANSINT:[id number] Voice Confirmation ID: [id number] DOCUMENT ID: [id number] CONSULT REPORT [id number] SINDHU MONSIVAIS JEFFREY MD at 1054 CC: [id number] DICTATION DATE: 09/27/18 1251 NP: 09/27/18 1350 ADM IN [facility] [address] [place] [address]
--- NOTE | 2018-09-28 12:57 | NUR ---
1242-RECEIVED REPORT FROM MICHAEL IN ICU.
--- NOTE | 2018-09-28 13:07 | NUR ---
RECEIVED TO ROOM VIA WHEELCHAIR FROM ICU. PRESENT WITH MICHAEL. LEFT TRIPLE LUMEN CVL SEEN WITH NS INFUSING AT 10 CC/HR. DATED TO LEFT CVL IS 09/27/18. THERE ARE 2 SMALL WHITE BORDER GUAZE DRESSINGS SEEN TO RIGHT ANTERIOR FOREHEAD, NO DATE ON THESE. AND NURSE STATE THEY WERE PLACED YESTERDAY. ON BACK OF HEAD RUNNING VERTICAL ARE DARCY COVERING A 12 CM INCISION. NO DRAINAGE SEEN. NURSE STATES NO DRAINAGE X 1 WEEK. MAGNETIC PROSPECTING SUPERVISOR WITH MS CLEARED WITH PREVIOUS NURSE AND MYSELF. INSTRUCTED TO USE CALL LIGHT FOR ALL NEEDS. DENIES NEEDS AT THIS TIME.
--- NOTE | 2018-09-28 13:20 | NUR ---
PATIENT IS SUPPOSE TO BE ON A HEART MONITOR BUT NONE ARE AVAILABLE AT THIS TIME.
--- NOTE | 2018-09-28 17:55 | MORECARE ---
CASE MANAGEMENT DISCHARGE SUMMARY PATIENT: SINDHU MONSIVAIS UNIT: [id number] ADM DATE: 09/21/18 AGE: 38 : 78 SEX: M ROOM/BED: D.2121 AUTHOR: JOHNY HORN PHYSICIAN: REFERRING PHYSICIAN: MODESTA SHELTON MD DATE OF SERVICE: 09/28/18 Discharge Plan Patient Name: SINDHU MONSIVAIS Facility: [facility]:[place] : 1980 Planned Disposition: Home Anticipated Discharge Date: Discharge Date: Expected LOS: Initial Reviewer: [email or web address] Initial Review Date: 09/22/2018 Generated: 09/28/18 6:55 pm Comments DCP- Discharge Planning Updated by [email or web address]: Ari Sotomayor on 09/28/18 4:[address] Patient Name: SINDHU MONSIVAIS Encounter No: [id number] : 1980 Primary Insurance: [place] [employer] [place] Anticipated DC Date: Planned Disposition: Home DCP follow-up note: CM SPOKE TO PT IN ROOM REGARDING DISCHARGE PLANNING AND NEEDS. PT REPORTS THAT HE MAY NEED IV ANTIBIOTICS, DEPENDING ON CULTURE RESULTS. PT REPORTS IF HE NEEDS HOME HEALTH AND INFUSION, HE WANTS [facility] AND HAS NO PREFERENCE ON INFUSION COMPANY. PT REPORTS HIS IS TEACHABLE CAREGIVER AND WILL TRANSPORT HIM HOME AT DISCHARGE. CM TO FOLLOW AND ASSIST WITH ANY IDENTIFIED DISCHARGE NEEDS. Ari Sotomayor, CASE MANAGEMENT Last DP export: 09/22/18 3:07 pm Patient Name: SINDHU MONSIVAIS Page [phone] at 1755 All edits/amendments must be made on the electronic document DICTATION DATE: 09/28/181753 COMMERCIAL SPECIALIST: LILI 09/28/181753 RPT#: [id number] DC DATE: STATUS: ADM IN [facility] [address] [place] [address] END OF REPORT
--- NOTE | 2018-09-28 19:27 | NUR ---
RESUMED CARE OF PT, UP IN BED RESPIRATIONS EVEN AND UNLABORED ON ROOM AIR. LEFT SUBCLAVIAN TL INFUSING NS @ KVO AND MORPHINE CORN HUSKER MACHINE OPERATOR. 77 SR ON TELEMETRY. RIGHT FOREARM DRESSINGS C/D/I X 2. NO NEEDS VOICED AT THIS TIME, CALL LIGHT IN REACH. SEE NURSE ASSESSMENT.
[2018-09-29 03:47] VITALS: BP 129/81
--- NOTE | 2018-09-29 07:21 | NUR ---
ROUNDING DONE WITH PATIENT RETURNING FROM RESTROOM. VOIDED EASILY. LEFT TRIPLE LUMEN CVL SEEN WITH C/D/I DRESSING. DARCY TO BACK OF HEAD, INTACT. NO DRAINAGE SEEN. TWO SMALL WHITE BORDER GUAZE DRESSING TO RIGHT FOREHEAD, WILL CHANGE THESE TODAY. ON ROOM AIR. ON HEART MONITOR SHOWING SR, HR 73. NORMAL SALINE INUFSING AT 10 CC/HR ALONG WITH NIP WRAPPER MS. WILL MONITOR.
[2018-09-29 07:27] LABS: BASOPHILS 0.2 % (0-2); EOSINOPHILS 3.4 % (0-7); HEMATOCRIT 40.9 % (42.0-54.0); HEMOGLOBIN 13.2 g/dL (13.5-17.5); IMMATURE GRANULOCYTES 0.4 % (0-5); LYMPHOCYTES 13.5 % (15-50); MCHC 32.3 g/dL (31.0-37.0); MCV 80.5 fL (80.0-100.0); MEAN PLATELET VOLUME 10.1 fL (7.4-10.4); MONOCYTES 7.2 % (2-11); NEUTROPHILS 75.3 % (40-80); PLATELET COUNT 190 10x3/uL (130-400); RBC 5.08 10x6/uL (4.20-6.10); RDW 15.3 % (11.5-14.5); WBC 9.4 10x3/uL (4.8-10.8)
[2018-09-29 07:29] LABS: CALC OSMOLALITY 274 mosm/kg (275-300); CARBON DIOXIDE 29.4 mmol/L (21.0-32.0); CHLORIDE - SERUM 103 mmol/L (98-107); GENTAMICIN - RANDOM 0.9 ug/mL (0.5-2.0); GLUCOSE 96 mg/dL (74-106); POTASSIUM - SERUM 3.6 mmol/L (3.5-5.1); SODIUM 138 mmol/L (136-145); UREA NITROGEN 11 mg/dL (7-18); eGFR NON AFRICAN AMERICAN 88 mL/min (90-120)
[2018-09-29 08:26] VITALS: BP 136/86
--- NOTE | 2018-09-29 10:39 | NUR ---
DRESSINGS TO RIGHT FOREHEAD REMOVED. NOTED ARE TWO INCISIONS EACH WITH DARCY INTACT. NO DRAINAGE. LEFT OPEN TO AIR.
[2018-09-29 11:44] VITALS: BP 131/80
--- NOTE | 2018-09-29 13:01 | NUR ---
PATIENT WASHED HIMSELF UP AND DID NOT WANT LINENS CHANGED YET. NEW GOWN OFFERED AND GIVEN.
--- NOTE | 2018-09-29 13:29 | NUR ---
DR BARRAGAN TO COME SEE PATIENT. PATIENT WILL POSSIBLY DISCHARGED TOMORROW ON HOME INFUSION IV ANTIBIOTICS. AWAITING MIDLINE PLACEMENT TODAY.
--- NOTE | 2018-09-29 14:17 | NUR ---
LEIGHANN SHEFFIELD RN HERE TO PLACE MIDLINE.
--- NOTE | 2018-09-29 14:59 | NUR ---
RIGHT MIDLINE CATH PLACEMENT PER LEIGHANN SHEFFIELD RN. WILL REMOVE LEFT CVL SHORTLY.
--- NOTE | 2018-09-29 15:24 | NUR ---
LEFT CVL REMOVED PER PROTOCOL WITH TIP INTACT. NS AND FILTER OPERATOR CONVERTED TO RIGHT UPPER ARM MIDLINE. TO LAY FLAT X 15 MIN. OLD SITE IS COVERED WITH 2 X 2 AND OPSITE. TOLERATED WELL. CALL LIGHT ON CHEST.
[2018-09-29 15:34] VITALS: BP 131/91
--- NOTE | 2018-09-29 15:48 | NUR ---
1500-VANC TROUGH RESULT IS 16.8. I SPOKE WITH ASIF IN PHARMACY AND SHE SAID TO GO AHEAD AND GIVE THE VANC DOSE.
--- NOTE | 2018-09-29 17:40 | NUR ---
SITTING UP IN THE BED EATING JANET MODESTA SANDWICH. DENIES ANY NEEDS AT THIS TIME.
--- NOTE | 2018-09-29 17:55 | OP ---
PATIENT NAME: SINDHU MONSIVAIS MEDICAL RECORD: [id number] :76 LOCATION:D.M2 D.2121 ADMISSION DATE:09/21/18 SURGEON: MODESTA SHELTON MD DATE OF OPERATION: 09/27/2018 PREOPERATIVE DIAGNOSIS: Bacterial meningitis. POSTOPERATIVE DIAGNOSIS: Bacterial meningitis. PROCEDURE: Removal of WEARING APPAREL PRESSER shunt. DESCRIPTION OF TECHNIQUE: After TIVA anesthesia with propofol, shunt at right frontal area was prepped and draped in usual sterile fashion. After infiltration with 1:100,000 epinephrine and 1% lidocaine into the shunt incision, the previous incision was incised. The shunt was removed without difficulty. Under direct vision, the shunt was sent to pathology for specimen. Additional spinal fluid was sent to the lab for protein, glucose, cell count, and culture. Meticulous hemostasis was maintained throughout the wound. The galea was reapproximated with interrupted 2-0 Vicryl suture. The skin was closed with asia. A sterile dressing was applied to the wound. The patient was awakened in good condition and taken to recovery. All counts were reported as correct. Estimated blood loss was minimal. TRANSINT:[id number] Voice Confirmation ID: [id number] DOCUMENT ID: [id number] MODESTA SHELTON MD at 1755 CC: [id number] DICTATION DATE: 09/27/18 1020 HR INTERN: 09/27/18 1157 ADM IN [facility] [id number] [place] [address]
--- NOTE | 2018-09-29 19:10 | NUR ---
ASSESSMENT COMPLETE, PT A&0. RESPERATIONS EVEN ON RA. RIGHT UPPER MIDLINE IV WITH NS INFUSING AT KVO, MORPHINE SHOVEL MECHANIC IN USE FOR PAIN CONTROL. INCISIONS TO RIGHT SIDE AND TOP OF HEAD WITH DARCY, NO DRAINAGE NOTED. PT CURRENTLY DENIES PAIN OR NEEDS, BED LOW, CL IN REACH.
[2018-09-29 20:00] VITALS: BP 127/88
--- NOTE | 2018-09-30 02:04 | NUR ---
PT ASLEEP. RIGHT UPPER ARM MIDLINE WITH NURSING AIDE INFUSING. PT RESP EVEN AND UNLABORED. NO S/S OF DISTRESS. PT IS 64 SR WITH OCCASIONAL PVC'S. BEDLOW AND CALL LIGHT IN REACH. PT WILL CALL FOR ASSIST WHEN NEEDED. WILL CPOC
[2018-09-30 03:55] VITALS: BP 131/91
--- NOTE | 2018-09-30 07:15 | NUR ---
ASSESSMENT DONE. DENIES NEEDS.
[2018-09-30 10:23] VITALS: BP 133/95
--- NOTE | 2018-09-30 10:54 | MORECARE ---
CASE MANAGEMENT DISCHARGE SUMMARY PATIENT: SINDHU MONSIVAIS UNIT: [id number] ADM DATE: 09/21/18 AGE: 38 : 76 SEX: M ROOM/BED: D.2126 AUTHOR: JOHNY HORN PHYSICIAN: REFERRING PHYSICIAN: MODESTA SHELTON MD DATE OF SERVICE: 09/30/18 Discharge Plan Patient Name: SINDHU MONSIVAIS Facility: [facility]:[place] : 1980 Planned Disposition: Home Anticipated Discharge Date: Discharge Date: Expected LOS: Initial Reviewer: [email or web address] Initial Review Date: 09/22/2018 Generated: 09/30/18 11:54 am Comments DCP- Discharge Planning Updated by [id number]: Geovanna Mcdowell on 09/30/18 9:[address] BARRAGAN ABOUT DISCHARGE PLANNING. THE PLAN IS TO DISCHARGE HOME ON ZYVOX AND GENTAMICIN. I EXPLAINED THAT WITH THE PATIENTS INSURANCE, WE MAY NEED TO GO THROUGH A MEDICAL NECESSITY REVIEW FOR APPROVAL OF THE ZYVOX. THE REQUEST HAS BEEN MADE TO PROCEED. I CALLED AND SPOKE WITH ANDERS ALMANZA CM ([phone]). EXPLAINED THE SITUTATION TO HER. SHE STATED THAT SHE WOULD HAVE TO TRANSFER ME TO SOMEONE ELSE FOR THAT AUTHORIZATION (SHE SAID SHE COULD NOT GIVE ME THE NUMBER BECAUSE THEY JUST TRANSFER INTERANLLY AND SHE DOES NOT KNOW THE NUMBER). SHE REQUESTED VERBAL UPDATE ON THE PATIENT, AND ONE WAS GIVEN. AUTH RECEIVED AND ENTERED INTO THE PAYOR CONTACTS. SHE TRANSFERRED ME TO [facility]. SHE CONFIRMED THAT THE GENTAMICIN WAS COVERED IN THE FORMULARY, BUT THE ZYVOX WAS NOT AND A MEDICAL NON-FORMULARY EXCEPTION REQUEST FORM COULD BE COMPLETED AND SENT IN TO THE NUMBER ON THE REQUEST FORM WELL THE LATEST NOTE FROM THE PRESCRIBING PHYSICIAN AND THE CULTURE RESULTS. (REFERENCE # FOR CALL IS [id number]). FORM PRINTED FROM THE WEBSITE AND COMPLETED INSTRUCTED. I WALKED IT OVER TO DR BARRAGAN FOR COMPLETION AND SIGNATURE. INFORMATION WAS FAXED TO [phone] FOR AUTH BY THE PHARMACIST (NAME NOT NOTED BEFORE PHONE TRANSFERRED BACK TO [facility] AND CALL ENDED.) I WILL WAIT ON DECISION, AND THEN NOTIFY DR. BARRAGAN AND DR. SHELTON. DCP- Discharge Planning Updated by [email or web address]: Ari Sotomayor on 09/28/18 4:[address] Patient Name: SINDHU MONSIVAIS Encounter No: [id number] : 1980 Primary Insurance: [place] [employer] ANTON[place] Anticipated DC Date: Planned Disposition: Home DCP follow-up note: CM SPOKE TO PT IN ROOM REGARDING DISCHARGE PLANNING AND NEEDS. PT REPORTS THAT HE MAY NEED IV ANTIBIOTICS, DEPENDING ON CULTURE RESULTS. PT REPORTS IF HE NEEDS HOME HEALTH AND INFUSION, HE WANTS [facility] AND HAS NO PREFERENCE ON INFUSION COMPANY. PT REPORTS HIS IS TEACHABLE CAREGIVER AND WILL TRANSPORT HIM HOME AT DISCHARGE. CM TO FOLLOW AND ASSIST WITH ANY IDENTIFIED DISCHARGE NEEDS. Ari Sotomayor, CASE MANAGEMENT Last DP export: 09/28/18 4:55 p Patient Name: SINDHU MONSIVAIS Page [phone] at 1054 All edits/amendments must be made on the electronic document DICTATION DATE: 09/30/18 105 BONDING MACHINE OPERATOR: LILI 09/30/18 1054 RPT#: [id number] DC DATE: STATUS: ADM IN [facility] [address] [place] [address] END OF REPORT
--- NOTE | 2018-09-30 10:55 | NUR ---
I have reviewed this patient and I concur with the Shift Assessment completed by the Licensed Practical Nurse today this shift.
--- NOTE | 2018-09-30 11:19 | MORECARE ---
CASE MANAGEMENT DISCHARGE SUMMARY PATIENT: SINDHU MONSIVAIS UNIT: [id number] ADM DATE: 09/21/18 AGE: 38 : 76 SEX: M ROOM/BED: D.2126 AUTHOR: JOHNY HORN PHYSICIAN: REFERRING PHYSICIAN: MODESTA SHELTON MD DATE OF SERVICE: 09/30/18 Discharge Plan Patient Name: SINDHU MONSIVAIS Facility: [facility]:[place] : 1980 Planned Disposition: Home with Infusion Therapy Services Anticipated Discharge Date: 09/30/18 Discharge Date: Expected LOS: 9 Initial Reviewer: [id number] Initial Review Date: 09/22/2018 Generated: 09/30/18 12:18 pm Comments DCP- Discharge Planning Updated by [email or web address]: Geovanna Mcdowell on 09/30/18 9:[address] SPOKE WITH DR BARRAGAN ABOUT DISCHARGE PLANNING. THE PLAN IS TO DISCHARGE HOME ON ZYVOX AND GENTAMICIN. I EXPLAINED THAT WITH THE PATIENTS INSURANCE, WE MAY NEED TO GO THROUGH A MEDICAL NECESSITY REVIEW FOR APPROVAL OF THE ZYVOX. THE REQUEST HAS BEEN MADE TO PROCEED. I CALLED AND SPOKE WITH ANDERS ALMANZA CM ([phone] X ). EXPLAINED THE SITUTATION TO HER. SHE STATED THAT SHE WOULD HAVE TO TRANSFER ME TO SOMEONE ELSE FOR THAT AUTHORIZATION (SHE SAID SHE COULD NOT GIVE ME THE NUMBER BECAUSE THEY JUST TRANSFER INTERANLLY AND SHE DOES NOT KNOW THE NUMBER). SHE REQUESTED VERBAL UPDATE ON THE PATIENT, AND ONE WAS GIVEN. AUTH RECEIVED AND ENTERED INTO THE PAYOR CONTACTS. SHE TRANSFERRED ME TO [facility]. SHE CONFIRMED THAT THE GENTAMICIN WAS COVERED IN THE FORMULARY, BUT THE ZYVOX WAS NOT AND A MEDICAL NON-FORMULARY EXCEPTION REQUEST FORM COULD BE COMPLETED AND SENT IN TO THE NUMBER ON THE REQUEST FORM WELL THE LATEST NOTE FROM THE PRESCRIBING PHYSICIAN AND THE CULTURE RESULTS. (REFERENCE # FOR CALL IS [id number]). FORM PRINTED FROM THE WEBSITE AND COMPLETED INSTRUCTED. I WALKED IT OVER TO DR BARRAGAN FOR COMPLETION AND SIGNATURE. INFORMATION WAS FAXED TO [phone] FOR AUTH BY THE PHARMACIST (NAME NOT NOTED BEFORE PHONE TRANSFERRED BACK TO [facility] AND CALL ENDED.) I WILL WAIT ON DECISION, AND THEN NOTIFY DR. BARRAGAN AND DR. SHELTON. DCP- Discharge Planning Updated by [email or web address]: Ari Sotomayor on 09/28/18 4:[address] Patient Name: SINDHU MONSIVAIS Encounter No: [id number] : 1980 Primary Insurance: [place] [employer]IONS [place] Anticipated DC Date: Planned Disposition: Home DCP follow-up note: CM SPOKE TO PT IN ROOM REGARDING DISCHARGE PLANNING AND NEEDS. PT REPORTS THAT HE MAY NEED IV ANTIBIOTICS, DEPENDING ON CULTURE RESULTS. PT REPORTS IF HE NEEDS HOME HEALTH AND INFUSION, HE WANTS [facility] AND HAS NO PREFERENCE ON INFUSION COMPANY. PT REPORTS HIS IS TEACHABLE CAREGIVER AND WILL TRANSPORT HIM HOME AT DISCHARGE. CM TO FOLLOW AND ASSIST WITH ANY IDENTIFIED DISCHARGE NEEDS. Ari Sotomayor, CASE MANAGEMENT Last DP export: 09/30/18 9:54 a Patient Name: SINDHU MONSIVAIS Page 38317 at 1119 All edits/amendments must be made on the electronic document DICTATION DATE: 09/30/181117 DIGITAL COMMUNITY MANAGER: LILI 09/30/18 1118 RPT#: [id number] DC DATE: STATUS: ADM IN [facility] [address] [place] [address] END OF REPORT
--- NOTE | 2018-09-30 11:28 | MORECARE ---
CASE MANAGEMENT DISCHARGE SUMMARY PATIENT: SINDHU MONSIVAIS UNIT: [id number] ADM DATE: 09/21/18 AGE: 38 : 78 SEX: M ROOM/BED: D.2122 AUTHOR: JOHNY HORN PHYSICIAN: REFERRING PHYSICIAN: MODESTA SHELTON MD DATE OF SERVICE: 09/30/18 Discharge Plan Patient Name: SINDHU MONSIVAIS Facility: [facility]:[place] : 1980 Planned Disposition: Home with Infusion Therapy Services Anticipated Discharge Date: 09/30/18 Discharge Date: Expected LOS: 9 Initial Reviewer: [id number] Initial Review Date: 09/22/2018 Generated: 09/30/18 12:28 pm Comments DCP- Discharge Planning Updated by [id number]: Geovanna Mcdowell on 09/30/18 9:[address] SPO[address] WITH DR BARRAGAN ABOUT DISCHARGE PLANNING. THE PLAN IS TO DISCHARGE HOME ON ZYVOX AND GENTAMICIN. I EXPLAINED THAT WITH THE PATIENTS INSURANCE, WE MAY NEED TO GO THROUGH A MEDICAL NECESSITY REVIEW FOR APPROVAL OF THE ZYVOX. THE REQUEST HAS BEEN MADE TO PROCEED. I CALLED AND SPOKE WITH ANDERS ALMANZA CM ([phone] X ). EXPLAINED THE SITUTATION TO HER. SHE STATED THAT SHE WOULD HAVE TO TRANSFER ME TO SOMEONE ELSE FOR THAT AUTHORIZATION (SHE SAID SHE COULD NOT GIVE ME THE NUMBER BECAUSE THEY JUST TRANSFER INTERANLLY AND SHE DOES NOT KNOW THE NUMBER). SHE REQUESTED VERBAL UPDATE ON THE PATIENT, AND ONE WAS GIVEN. AUTH RECEIVED AND ENTERED INTO THE PAYOR CONTACTS. SHE TRANSFERRED ME TO [facility]. SHE CONFIRMED THAT THE GENTAMICIN WAS COVERED IN THE FORMULARY, BUT THE ZYVOX WAS NOT AND A MEDICAL NON-FORMULARY EXCEPTION REQUEST FORM COULD BE COMPLETED AND SENT IN TO THE NUMBER ON THE REQUEST FORM WELL THE LATEST NOTE FROM THE PRESCRIBING PHYSICIAN AND THE CULTURE RESULTS. (REFERENCE # FOR CALL IS [id number]). FORM PRINTED FROM THE WEBSITE AND COMPLETED INSTRUCTED. I WALKED IT OVER TO DR BARRAGAN FOR COMPLETION AND SIGNATURE. INFORMATION WAS FAXED TO [phone] FOR AUTH BY THE PHARMACIST (NAME NOT NOTED BEFORE PHONE TRANSFERRED BACK TO [facility] AND CALL ENDED.) I WILL WAIT ON DECISION, AND THEN NOTIFY DR. BARRAGAN AND DR. SHELTON. DCP- Discharge Planning Updated by [id number]: Ari Sotomayor on 09/28/18 4:[address] Patient Name: SINDHU MONSIVAIS Encounter No: [id number] : 1980 Primary Insurance: [place] PRIVATE OPTIONS [place] Anticipated DC Date: Planned Disposition: Home DCP follow-up note: CM SPOKE TO PT IN ROOM REGARDING DISCHARGE PLANNING AND NEEDS. PT REPORTS THAT HE MAY NEED IV ANTIBIOTICS, DEPENDING ON CULTURE RESULTS. PT REPORTS IF HE NEEDS HOME HEALTH AND INFUSION, HE WANTS [facility] AND HAS NO PREFERENCE ON INFUSION COMPANY. PT REPORTS HIS IS TEACHABLE CAREGIVER AND WILL TRANSPORT HIM HOME AT DISCHARGE. CM TO FOLLOW AND ASSIST WITH ANY IDENTIFIED DISCHARGE NEEDS. Ari Sotomayor, CASE MANAGEMENT External Providers [facility] Next Contact Date: 09/30/2018 Service Request Date: Service Type: Resolution: Reviewer: Comments: Last DP export: 09/30/18 10:19 a Patient Name: SINDHU MONSIVAIS Page 00233 at 1128 All edits/amendments must be made on the electronic document DICTATION DATE: 09/30/18 1128 WAIST PLEATER: LILI 09/30/18 1128 RPT#: [id number] DC DATE: STATUS: ADM IN [facility] [address] [place] [address] END OF REPORT
--- NOTE | 2018-09-30 11:36 | MORECARE ---
CASE MANAGEMENT DISCHARGE SUMMARY PATIENT: SINDHU MONSIVAIS UNIT: [id number] ADM DATE: 09/21/18 AGE: 38 : 76 SEX: M ROOM/BED: D.2129 AUTHOR: JOHNY HORN PHYSICIAN: REFERRING PHYSICIAN: MODESTA SHELTON MD DATE OF SERVICE: 09/30/18 Discharge Plan Patient Name: SINDHU MONSIVAIS Facility: [facility]:[place] : 1980 Planned Disposition: Home with Infusion Therapy Services Anticipated Discharge Date: 09/30/18 Discharge Date: Expected LOS: 9 Initial Reviewer: [id number] Initial Review Date: 09/22/2018 Generated: 09/30/18 12:35 pm Comments DCP- Discharge Planning Updated by [email or web address]: Geovanna Mcdowell on 09/30/18 9:[address] SPOKE WITH DR BARRAGAN ABOUT DISCHARGE PLANNING. THE PLAN IS TO DISCHARGE HOME ON ZYVOX AND GENTAMICIN. I EXPLAINED THAT WITH THE PATIENTS INSURANCE, WE MAY NEED TO GO THROUGH A MEDICAL NECESSITY REVIEW FOR APPROVAL OF THE ZYVOX. THE REQUEST HAS BEEN MADE TO PROCEED. I CALLED AND SPOKE WITH ANDERS ALMANZA CM ([phone] X ). EXPLAINED THE SITUTATION TO HER. SHE STATED THAT SHE WOULD HAVE TO TRANSFER ME TO SOMEONE ELSE FOR THAT AUTHORIZATION (SHE SAID SHE COULD NOT GIVE ME THE NUMBER BECAUSE THEY JUST TRANSFER INTERANLLY AND SHE DOES NOT KNOW THE NUMBER). SHE REQUESTED VERBAL UPDATE ON THE PATIENT, AND ONE WAS GIVEN. AUTH RECEIVED AND ENTERED INTO THE PAYOR CONTACTS. SHE TRANSFERRED ME TO [facility]. SHE CONFIRMED THAT THE GENTAMICIN WAS COVERED IN THE FORMULARY, BUT THE ZYVOX WAS NOT AND A MEDICAL NON-FORMULARY EXCEPTION REQUEST FORM COULD BE COMPLETED AND SENT IN TO THE NUMBER ON THE REQUEST FORM WELL THE LATEST NOTE FROM THE PRESCRIBING PHYSICIAN AND THE CULTURE RESULTS. (REFERENCE # FOR CALL IS [id number]). FORM PRINTED FROM THE WEBSITE AND COMPLETED INSTRUCTED. I WALKED IT OVER TO DR BARRAGAN FOR COMPLETION AND SIGNATURE. INFORMATION WAS FAXED TO [phone] FOR AUTH BY THE PHARMACIST (NAME NOT NOTED BEFORE PHONE TRANSFERRED BACK TO [facility] AND CALL ENDED.) I WILL WAIT ON DECISION, AND THEN NOTIFY DR. BARRAGAN AND DR. SHELTON. DCP- Discharge Planning Updated by [id number]: Ari Sotomayor on 09/28/18 4:[address] Patient Name: SINDHU MONSIVAIS Encounter No: [id number] : 1980 Primary Insurance: [place] [employer]IVATE [employer] [place] Anticipated DC Date: Planned Disposition: Home DCP follow-up note: CM SPOKE TO PT IN ROOM REGARDING DISCHARGE PLANNING AND NEEDS. PT REPORTS THAT HE MAY NEED IV ANTIBIOTICS, DEPENDING ON CULTURE RESULTS. PT REPORTS IF HE NEEDS HOME HEALTH AND INFUSION, HE WANTS [facility] AND HAS NO PREFERENCE ON INFUSION COMPANY. PT REPORTS HIS IS TEACHABLE CAREGIVER AND WILL TRANSPORT HIM HOME AT DISCHARGE. CM TO FOLLOW AND ASSIST WITH ANY IDENTIFIED DISCHARGE NEEDS. Ari Sotomayor, CASE MANAGEMENT External Providers [facility] Next Contact Date: 09/30/2018 Service Request Date: Service Type: Resolution: Reviewer: Comments: Last DP export: 09/30/18 10:28 a Patient Name: SINDHU MONSIVAIS Page [phone] at 1136 All edits/amendments must be made on the electronic document DICTATION DATE: 09/30/18 1135 ADVANCED MANUFACTURING CONSULTANT: LILI 09/30/18 1135 RPT#: [id number] DC DATE: STATUS: ADM IN [facility] [address] [place] [address] END OF REPORT
--- NOTE | 2018-09-30 13:36 | MORECARE ---
CASE MANAGEMENT DISCHARGE SUMMARY PATIENT: SINDHU MONSIVAIS UNIT: [id number] ADM DATE: 09/21/18 AGE: 38 : 76 SEX: M ROOM/BED: D.2124 AUTHOR: JOHNY HORN PHYSICIAN: REFERRING PHYSICIAN: MODESTA SHELTON MD DATE OF SERVICE: 09/30/18 Discharge Plan Patient Name: SINDHU MONSIVAIS Facility: [facility]:[place] : 1980 Planned Disposition: Home with Infusion Therapy Services Anticipated Discharge Date: 09/30/18 Discharge Date: Expected LOS: 9 Initial Reviewer: [id number] Initial Review Date: 09/22/2018 Generated: 09/30/18 2:36 pm Comments DCP- Discharge Planning Updated by [id number]: Geovanna Mcdowell on 09/30/18 9:[address] SPOKE WITH DR BARRAGAN ABOUT DISCHARGE PLANNING. THE PLAN IS TO DISCHARGE HOME ON ZYVOX AND GENTAMICIN. I EXPLAINED THAT WITH THE PATIENTS INSURANCE, WE MAY NEED TO GO THROUGH A MEDICAL NECESSITY REVIEW FOR APPROVAL OF THE ZYVOX. THE REQUEST HAS BEEN MADE TO PROCEED. I CALLED AND SPOKE WITH ANDERS ALMANZA CM ([phone] X ). EXPLAINED THE SITUTATION TO HER. SHE STATED THAT SHE WOULD HAVE TO TRANSFER ME TO SOMEONE ELSE FOR THAT AUTHORIZATION (SHE SAID SHE COULD NOT GIVE ME THE NUMBER BECAUSE THEY JUST TRANSFER INTERANLLY AND SHE DOES NOT KNOW THE NUMBER). SHE REQUESTED VERBAL UPDATE ON THE PATIENT, AND ONE WAS GIVEN. AUTH RECEIVED AND ENTERED INTO THE PAYOR CONTACTS. SHE TRANSFERRED ME TO [facility]. SHE CONFIRMED THAT THE GENTAMICIN WAS COVERED IN THE FORMULARY, BUT THE ZYVOX WAS NOT AND A MEDICAL NON-FORMULARY EXCEPTION REQUEST FORM COULD BE COMPLETED AND SENT IN TO THE NUMBER ON THE REQUEST FORM WELL THE LATEST NOTE FROM THE PRESCRIBING PHYSICIAN AND THE CULTURE RESULTS. (REFERENCE # FOR CALL IS [id number]). FORM PRINTED FROM THE WEBSITE AND COMPLETED INSTRUCTED. I WALKED IT OVER TO DR BARRAGAN FOR COMPLETION AND SIGNATURE. INFORMATION WAS FAXED TO [phone] FOR AUTH BY THE PHARMACIST (NAME NOT NOTED BEFORE PHONE TRANSFERRED BACK TO [facility] AND CALL ENDED.) I WILL WAIT ON DECISION, AND THEN NOTIFY DR. BARRAGAN AND DR. SHELTON. DCP- Discharge Planning Updated by [id number]: Ari Sotomayor on 09/28/18 4:[address] Patient Name: SINDHU MONSIVAIS Encounter No: [id number] : 1980 Primary Insurance: [place] PRIVATE [employer]IONS [place] Anticipated DC Date: Planned Disposition: Home DCP follow-up note: CM SPOKE TO PT IN ROOM REGARDING DISCHARGE PLANNING AND NEEDS. PT REPORTS THAT HE MAY NEED IV ANTIBIOTICS, DEPENDING ON CULTURE RESULTS. PT REPORTS IF HE NEEDS HOME HEALTH AND INFUSION, HE WANTS [facility] AND HAS NO PREFERENCE ON INFUSION COMPANY. PT REPORTS HIS IS TEACHABLE CAREGIVER AND WILL TRANSPORT HIM HOME AT DISCHARGE. CM TO FOLLOW AND ASSIST WITH ANY IDENTIFIED DISCHARGE NEEDS. Ari Sotomayor, CASE MANAGEMENT Last DP export: 09/30/18 10:36 a Patient Name: SINDHU MONSIVAIS Page 16087 at 1336 All edits/amendments must be made on the electronic document DICTATION DATE: 09/30/18 1335 COMMUNICATIONS ENGINEERING TECHNICIAN: LILI 09/30/18 1335 RPT#: [id number] DC DATE: STATUS: ADM IN [facility] [address] [place] [address] END OF REPORT
--- NOTE | 2018-09-30 13:51 | MORECARE ---
CASE MANAGEMENT DISCHARGE SUMMARY PATIENT: SINDHU MONSIVAIS UNIT: [id number] ADM DATE: 09/21/18 AGE: 38 : 76 SEX: M ROOM/BED: D.2121 AUTHOR: JUSTINA,DOC PHYSICIAN: REFERRING PHYSICIAN: MODESTA SHELTON MD DATE OF SERVICE: 09/30/18 Discharge Plan Patient Name: SINDHU MONSIVAIS Facility: [facility]:[place] : 1980 Planned Disposition: Home with Infusion Therapy Services Anticipated Discharge Date: 09/30/18 Discharge Date: Expected LOS: 9 Initial Reviewer: [id number] Initial Review Date: 09/22/2018 Generated: 09/30/18 2:51 pm Comments DCP- Discharge Planning Updated by [id number]: Ari Sotomayor on 09/30/18 12:[address] Patient Name: SINDHU MONSIVAIS Encounter No: [id number] : 1980 Primary Insurance: [place] PRIVATE OPTIONS [facility] Anticipated DC Date: 09-30-2018 Planned Disposition: Home with Infusion Therapy Services External Planned Provider: [facility], [facility] DCP follow-up note: CM RECEIVED ORDER FOR HOME INFUSION SERVICES, MET WITH PT IN ROOM. PT REPORTS AGREEMENT WITH PLAN AND WANTS TO GO HOME TODAY. CHOICE LISTINGS PROVIDED FOR HOME INFUSION AND HOME HEALTH. PT SIGNED CHOICE FOR [facility] AND [facility]. PT'S SPOUSE TO TRANSPORT HOME. CM CALLED [facility], , SPOKE TO AZALEA, PROVIDED REFERRAL INFORMATION, PT TO BE ADMITTED TOMORROW. CM [facility], . CM CALLED [facility] [phone], SPOKE TO JAS AND PROVIDED REFERRAL FOR HOME INFUSION. CM FAXED REFERRAL FOR HOME INFUSION TO [facility] AT [phone]. CM RECEIVED CALL FROM [facility], THEY WILL PROVIDE EDUCATION TO PT TODAY AND WILL DELIVER MEDICATION TO PT'S HOME IN THE MORNING TO START INFUSION 10-01-18 AT HOME. FOR DISCHARGE, NOTIFY [facility] AT [phone]; FAX DISCHARGE INFORMATION TO [facility] AT [phone]. CM CONTINUES TO WAIT MEDICAL NECESSITY REVIEW FOR APPROVAL OF THE ZYVOX; CM TO NOTIFY DR. BARRAGAN AND DR SHELTON OF INSURANCE DECISION FOR PO ZYVOX. Ari Sotomayor, CASE MANAGEMENT DCP- Discharge Planning Updated by [id number]: Geovanna Mcdowell on 09/30/18 9:[address]PO[address] WITH DR BARRAGAN ABOUT DISCHARGE PLANNING. THE PLAN IS TO DISCHARGE HOME ON ZYVOX AND GENTAMICIN. I EXPLAINED THAT WITH THE PATIENTS INSURANCE, WE MAY NEED TO GO THROUGH A MEDICAL NECESSITY REVIEW FOR APPROVAL OF THE ZYVOX. THE REQUEST HAS BEEN MADE TO PROCEED. I CALLED AND SPOKE WITH ANDERS ALMANZA CM ([phone] X ). EXPLAINED THE SITUTATION TO HER. SHE STATED THAT SHE WOULD HAVE TO TRANSFER ME TO SOMEONE ELSE FOR THAT AUTHORIZATION (SHE SAID SHE COULD NOT GIVE ME THE NUMBER BECAUSE THEY JUST TRANSFER INTERANLLY AND SHE DOES NOT KNOW THE NUMBER). SHE REQUESTED VERBAL UPDATE ON THE PATIENT, AND ONE WAS GIVEN. AUTH RECEIVED AND ENTERED INTO THE PAYOR CONTACTS. SHE TRANSFERRED ME TO [facility]. SHE CONFIRMED THAT THE GENTAMICIN WAS COVERED IN THE FORMULARY, BUT THE ZYVOX WAS NOT AND A MEDICAL NON-FORMULARY EXCEPTION REQUEST FORM COULD BE COMPLETED AND SENT IN TO THE NUMBER ON THE REQUEST FORM WELL THE LATEST NOTE FROM THE PRESCRIBING PHYSICIAN AND THE CULTURE RESULTS. (REFERENCE # FOR CALL IS [id number]). FORM PRINTED FROM THE WEBSITE AND COMPLETED INSTRUCTED. I WALKED IT OVER TO DR BARRAGAN FOR COMPLETION AND SIGNATURE. INFORMATION WAS FAXED TO [phone] FOR AUTH BY THE PHARMACIST (NAME NOT NOTED BEFORE PHONE TRANSFERRED BACK TO [facility] AND CALL ENDED.) I WILL WAIT ON DECISION, AND THEN NOTIFY DR. BARRAGAN AND DR. SHELTON. DCP- Discharge Planning Updated by [id number]: Ari Sotomayor on 09/28/18 4:[address] Patient Name: SINDHU MONSIVAIS Encounter No: [id number] : 1980 Primary Insurance: [place] [employer]IVATE OPTIONS [place] Anticipated DC Date: Planned Disposition: Home DCP follow-up note: CM SPOKE TO PT IN ROOM REGARDING DISCHARGE PLANNING AND NEEDS. PT REPORTS THAT HE MAY NEED IV ANTIBIOTICS, DEPENDING ON CULTURE RESULTS. PT REPORTS IF HE NEEDS HOME HEALTH AND INFUSION, HE WANTS [facility] AND HAS NO PREFERENCE ON INFUSION COMPANY. PT REPORTS HIS IS TEACHABLE CAREGIVER AND WILL TRANSPORT HIM HOME AT DISCHARGE. CM TO FOLLOW AND ASSIST WITH ANY IDENTIFIED DISCHARGE NEEDS. Ari Sotomayor, CASE MANAGEMENT Last DP export: 09/30/18 12:36 p Patient Name: SINDHU MONSIVAIS Page 12608 at 1351 All edits/amendments must be made on the electronic document DICTATION DATE: 09/30/18 1350 LUMBER RACKER: LILI 09/30/18 1350 RPT#: [id number] DC DATE: STATUS: ADM IN [facility] [address] [place] [address] END OF REPORT
[2018-09-30 16:59] VITALS: BP 138/95
--- NOTE | 2018-09-30 17:43 | NUR ---
WITHOUT CHANGES OR DISTRESS NOTED AT THIS TIME. DENIES NEEDS
--- NOTE | 2018-09-30 18:50 | MORECARE ---
CASE MANAGEMENT DISCHARGE SUMMARY PATIENT: SINDHU MONSIVAIS UNIT: [id number] ADM DATE: 09/21/18 AGE: 38 : 76 SEX: M ROOM/BED: D.2121 AUTHOR: JUSTINA,DOC PHYSICIAN: REFERRING PHYSICIAN: MODESTA SHELTON MD DATE OF SERVICE: 09/30/18 Discharge Plan Patient Name: SINDHU MONSIVAIS Facility: [facility]:[place] : 1980 Planned Disposition: Home with Infusion Therapy Services Anticipated Discharge Date: 09/30/18 Discharge Date: Expected LOS: 9 Initial Reviewer: [id number] Initial Review Date: 09/22/2018 Generated: 09/30/18 7:50 pm Comments DCP- Discharge Planning Updated by [email or web address]: Мария Cid on 09/30/18 5:[address] Patient Name: SINDHU MONSIVAIS Encounter No: [id number] : 1980 Primary Insurance: [place] PRIVATE OPTIONS [facility] Anticipated DC Date: 09-30-2018 Planned Disposition: Home with Infusion Therapy Services External Planned Provider: [facility], [facility] DCP follow-up note: CM RECEIVED ORDER FOR HOME INFUSION SERVICES, MET WITH PT IN ROOM. PT REPORTS AGREEMENT WITH PLAN AND WANTS TO GO HOME TODAY. CHOICE LISTINGS PROVIDED FOR HOME INFUSION AND HOME HEALTH. PT SIGNED CHOICE FOR [facility] AND [facility]. PT'S SPOUSE TO TRANSPORT HOME. CM CALLED [facility], , SPOKE TO AZALEA, PROVIDED REFERRAL INFORMATION, PT TO BE ADMITTED TOMORROW. CM [facility], . CM CALLED [facility] [phone], SPOKE TO JAS AND PROVIDED REFERRAL FOR HOME INFUSION. CM FAXED REFERRAL FOR HOME INFUSION TO [facility] AT [phone]. CM RECEIVED CALL FROM [facility], THEY WILL PROVIDE EDUCATION TO PT TODAY AND WILL DELIVER MEDICATION TO PT'S HOME IN THE MORNING TO START INFUSION 10-01-18 AT HOME. FOR DISCHARGE, NOTIFY [facility] AT [phone]; FAX DISCHARGE INFORMATION TO [facility] AT [phone]. CM CONTINUES TO WAIT MEDICAL NECESSITY REVIEW FOR APPROVAL OF THE ZYVOX; CM TO NOTIFY DR. BARRAGAN AND DR SHELTON OF INSURANCE DECISION FOR PO ZYVOX. Мария Cid, CASE MANAGEMENT Appended by Мария Cid on 09/30/2018 18:47 CDT: CM RECEIVED PHONE MESSAGE FROM [facility], AZALEA INFORMED CM THAT THEY DO NOT HAVE NURSING AVAILABILITY FOR HOME INFUSION 3-14 AND THAT THEY CHECKED WITH [facility], [facility], [facility] AND [facility], NONE OF WHICH HAD NURSING AVAILABILITY FOR INFUSION 3-14. CM CALLED [facility], , SPOKE TO DARLEEN WHO INFORMED CM THAT THEY HAD NOT RECEIVED THE FAX REQUEST FOR APPROVAL OF ZYVOX DESPITE THE FAX CONFIRMATION. CM REFAXED THE FORM AND SUPPORTING DOCUMENTS TO [facility] AT [phone]. CM SPOKE TO PT'S WHO INFORMED CM THAT EDUCATION HAD BEEN PROVIDED BY [facility]. CM EXPLAINED DELAY. CM CONTINUES TO WAIT APPROVAL OF DENIAL OF PO ZYVOX FROM PT'S INSURANCE COMPANY AND WILL CONTACT ALL LOCAL HOME HEALTH AGENCIES TO DETERMINE THE SOONEST AVAILABILITY FOR INFUSION START AT HOME. МАРИЯ CID, CASE MANAGEMENT DCP- Discharge Planning Updated by [id number]: Geovanna Mcdowell on 09/30/18 9:[address]PO[address] DR BARRAGAN ABOUT DISCHARGE PLANNING. THE PLAN IS TO DISCHARGE HOME ON ZYVOX AND GENTAMICIN. I EXPLAINED THAT WITH THE PATIENTS INSURANCE, WE MAY NEED TO GO THROUGH A MEDICAL NECESSITY REVIEW FOR APPROVAL OF THE ZYVOX. THE REQUEST HAS BEEN MADE TO PROCEED. I CALLED AND SPOKE WITH ANDERS ALMANZA CM ([phone] X ). EXPLAINED THE SITUTATION TO HER. SHE STATED THAT SHE WOULD HAVE TO TRANSFER ME TO SOMEONE ELSE FOR THAT AUTHORIZATION (SHE SAID SHE COULD NOT GIVE ME THE NUMBER BECAUSE THEY JUST TRANSFER INTERANLLY AND SHE DOES NOT KNOW THE NUMBER). SHE REQUESTED VERBAL UPDATE ON THE PATIENT, AND ONE WAS GIVEN. AUTH RECEIVED AND ENTERED INTO THE PAYOR CONTACTS. SHE TRANSFERRED ME TO [facility]. SHE CONFIRMED THAT THE GENTAMICIN WAS COVERED IN THE FORMULARY, BUT THE ZYVOX WAS NOT AND A MEDICAL NON-FORMULARY EXCEPTION REQUEST FORM COULD BE COMPLETED AND SENT IN TO THE NUMBER ON THE REQUEST FORM WELL THE LATEST NOTE FROM THE PRESCRIBING PHYSICIAN AND THE CULTURE RESULTS. (REFERENCE # FOR CALL IS [id number]). FORM PRINTED FROM THE WEBSITE AND COMPLETED INSTRUCTED. I WALKED IT OVER TO DR BARRAGAN FOR COMPLETION AND SIGNATURE. INFORMATION WAS FAXED TO [phone] FOR AUTH BY THE PHARMACIST (NAME NOT NOTED BEFORE PHONE TRANSFERRED BACK TO [facility] AND CALL ENDED.) I WILL WAIT ON DECISION, AND THEN NOTIFY DR. BARRAGAN AND DR. SHELTON. DCP- Discharge Planning Updated by [id number]: Мария Cid on 09/28/18 4:[address] Patient Name: SINDHU MONSIVAIS Encounter No: [id number] : 1980 Primary Insurance: [place] [employer] [place] Anticipated DC Date: Planned Disposition: Home DCP follow-up note: CM SPOKE TO PT IN ROOM REGARDING DISCHARGE PLANNING AND NEEDS. PT REPORTS THAT HE MAY NEED IV ANTIBIOTICS, DEPENDING ON CULTURE RESULTS. PT REPORTS IF HE NEEDS HOME HEALTH AND INFUSION, HE WANTS [facility] AND HAS NO PREFERENCE ON INFUSION COMPANY. PT REPORTS HIS IS TEACHABLE CAREGIVER AND WILL TRANSPORT HIM HOME AT DISCHARGE. CM TO FOLLOW AND ASSIST WITH ANY IDENTIFIED DISCHARGE NEEDS. Мария Cid, CASE MANAGEMENT Coverage Notice Reviewer: [id number] - Мария Cid Notice Issued Date-Time: 09/30/2018 11:00 Notice Type: Patient Choice Letter Notice Delivered To: Patient Relationship to Patient: Board Worker Name: Delivery Method: HAND - Hand Delivered Linda Days: Prior Verbal Notification: Recipient Understood Notice: Yes Recipient Signature: Yes Med Rec Note Co-signed by Attending: Coverage Notice Comment: [facility] Last DP export: 09/30/18 12:51 p Patient Name: SINDHU MONSIVAIS Page [id number] at 1850 All edits/amendments must be made on the electronic document DICTATION DATE: 09/30/181849 WATER METER INSTALLER: LILI 09/30/181849 RPT#: [id number] DC DATE: STATUS: ADM IN [facility] [address] [place] [address] END OF REPORT
--- NOTE | 2018-09-30 19:45 | NUR ---
RESUMING PATIENT CARE. PATIENT IS ALERT AND ORIENTED. PRESENTING TALKING ON PHONE. NO S/S OF DISTRESS. NO C/O PAIN. CALL LIGHT WITHIN REACH. WILL CPOC.
[2018-09-30 20:32] VITALS: BP 132/98
[2018-10-01 00:04] VITALS: BP 136/91
[2018-10-01 06:04] VITALS: BP 128/88
[2018-10-01 07:53] VITALS: BP 139/96
--- NOTE | 2018-10-01 08:29 | MORECARE ---
CASE MANAGEMENT DISCHARGE SUMMARY PATIENT: SINDHU MONSIVAIS UNIT: [id number] ADM DATE: 09/21/18 AGE: 38 : 76 SEX: M ROOM/BED: D.2121 AUTHOR: JUSTINA,DOC PHYSICIAN: REFERRING PHYSICIAN: MODESTA SHELTON MD DATE OF SERVICE: 10/01/18 Discharge Plan Patient Name: SINDHU MONSIVAIS Facility: [facility]:[place] : 1980 Planned Disposition: Home with Infusion Therapy Services Anticipated Discharge Date: 10/01/18 Discharge Date: Expected LOS: 10 Initial Reviewer: [id number] Initial Review Date: 09/22/2018 Generated: 10/01/18 9:28 am Comments DCP- Discharge Planning Updated by [id number]: Мария Cid on 09/30/18 5:[address] Patient Name: SINDHU MONSIVAIS Encounter No: [id number] : 1980 [place] Insurance: [place] [employer] [facility] Anticipated DC Date: 09-30-2018 Planned Disposition: Home with Infusion Therapy Services External Planned Provider: Float: [facility], [facility] DCP follow-up note: CM RECEIVED ORDER FOR HOME INFUSION SERVICES, MET WITH PT IN ROOM. PT REPORTS AGREEMENT WITH PLAN AND WANTS TO GO HOME TODAY. CHOICE LISTINGS PROVIDED FOR HOME INFUSION AND HOME HEALTH. PT SIGNED CHOICE FOR [facility] AND [facility]. PT'S SPOUSE TO TRANSPORT HOME. CM CALLED [facility], , SPOKE TO AZALEA, PROVIDED REFERRAL INFORMATION, PT TO BE ADMITTED TOMORROW. CM FAXED REFERRAL INFORMATION TO [facility], . CM CALLED [facility] [phone], SPOKE TO JAS AND PROVIDED REFERRAL FOR HOME INFUSION. CM FAXED REFERRAL FOR HOME INFUSION TO [facility] AT [phone]. CM RECEIVED CALL FROM JOSE ANGEL OF [facility], THEY WILL PROVIDE EDUCATION TO PT TODAY AND WILL DELIVER MEDICATION TO PT'S HOME IN THE MORNING TO START INFUSION 10-01-18 AT HOME. FOR DISCHARGE, NOTIFY [facility] AT [phone]; FAX DISCHARGE INFORMATION TO [facility] AT [phone]. CM CONTINUES TO WAIT MEDICAL NECESSITY REVIEW FOR APPROVAL OF THE ZYVOX; CM TO NOTIFY DR. BARRAGAN AND DR SHELTON OF INSURANCE DECISION FOR PO ZYVOX. Мария Cid, CASE MANAGEMENT Appended by Мария Cid on 09/30/2018 18:47 CDT: CM RECEIVED PHONE MESSAGE FROM [facility], [facility] INFORMED CM THAT THEY DO NOT HAVE NURSING AVAILABILITY FOR HOME INFUSION 3-14 AND THAT THEY CHECKED WITH [facility], [facility], [facility] AND [facility], NONE OF WHICH HAD NURSING AVAILABILITY FOR INFUSION 3-14. CM CALLED [facility], , SPOKE TO DARLEEN WHO INFORMED CM THAT THEY HAD NOT RECEIVED THE FAX REQUEST FOR APPROVAL OF ZYVOX DESPITE THE FAX CONFIRMATION. CM REFAXED THE FORM AND SUPPORTING DOCUMENTS TO [facility] AT [phone]. CM SPOKE TO PT'S WHO INFORMED CM THAT EDUCATION HAD BEEN PROVIDED BY [facility]. CM EXPLAINED DELAY. CM CONTINUES TO WAIT APPROVAL OF DENIAL OF PO ZYVOX FROM PT'S INSURANCE COMPANY AND WILL CONTACT ALL LOCAL HOME HEALTH AGENCIES TO DETERMINE THE SOONEST AVAILABILITY FOR INFUSION START AT HOME. МАРИЯ CID, CASE MANAGEMENT DCP- Discharge Planning Updated by [id number]: Geovanna Mcdowell on 09/30/18 9:[address] BARRAGAN ABOUT DISCHARGE PLANNING. THE PLAN IS TO DISCHARGE HOME ON ZYVOX AND GENTAMICIN. I EXPLAINED THAT WITH THE PATIENTS INSURANCE, WE MAY NEED TO GO THROUGH A MEDICAL NECESSITY REVIEW FOR APPROVAL OF THE ZYVOX. THE REQUEST HAS BEEN MADE TO PROCEED. I CALLED AND SPOKE WITH ANDERS ALMANZA CM ([phone] X ). EXPLAINED THE SITUTATION TO HER. SHE STATED THAT SHE WOULD HAVE TO TRANSFER ME TO SOMEONE ELSE FOR THAT AUTHORIZATION (SHE SAID SHE COULD NOT GIVE ME THE NUMBER BECAUSE THEY JUST TRANSFER INTERANLLY AND SHE DOES NOT KNOW THE NUMBER). SHE REQUESTED VERBAL UPDATE ON THE PATIENT, AND ONE WAS GIVEN. AUTH RECEIVED AND ENTERED INTO THE PAYOR CONTACTS. SHE TRANSFERRED ME TO [facility]. SHE CONFIRMED THAT THE GENTAMICIN WAS COVERED IN THE FORMULARY, BUT THE ZYVOX WAS NOT AND A MEDICAL NON-FORMULARY EXCEPTION REQUEST FORM COULD BE COMPLETED AND SENT IN TO THE NUMBER ON THE REQUEST FORM WELL THE LATEST NOTE FROM THE PRESCRIBING PHYSICIAN AND THE CULTURE RESULTS. (REFERENCE # FOR CALL IS [id number]). FORM PRINTED FROM THE WEBSITE AND COMPLETED INSTRUCTED. I WALKED IT OVER TO DR BARRAGAN FOR COMPLETION AND SIGNATURE. INFORMATION WAS FAXED TO [phone] FOR AUTH BY THE PHARMACIST (NAME NOT NOTED BEFORE PHONE TRANSFERRED BACK TO [facility] AND CALL ENDED.) I WILL WAIT ON DECISION, AND THEN NOTIFY DR. BARRAGAN AND DR. SHELTON. DCP- Discharge Planning Updated by [id number]: Мария Cid on 09/28/18 4:[address] Patient Name: SINDHU MONSIVAIS Encounter No: [id number] : 1980 Primary Insurance: [place] [employer] [place] Anticipated DC Date: Planned Disposition: Home DCP follow-up note: CM SPOKE TO PT IN ROOM REGARDING DISCHARGE PLANNING AND NEEDS. PT REPORTS THAT HE MAY NEED IV ANTIBIOTICS, DEPENDING ON CULTURE RESULTS. PT REPORTS IF HE NEEDS HOME HEALTH AND INFUSION, HE WANTS [facility] AND HAS NO PREFERENCE ON INFUSION COMPANY. PT REPORTS HIS IS TEACHABLE CAREGIVER AND WILL TRANSPORT HIM HOME AT DISCHARGE. CM TO FOLLOW AND ASSIST WITH ANY IDENTIFIED DISCHARGE NEEDS. Мария Cid, CASE MANAGEMENT Coverage Notice Reviewer: [id number] - Мария Cid Notice Issued Date-Time: 09/30/2018 11:00 Notice Type: Patient Choice Letter Notice Delivered To: Patient Relationship to Patient: Pole Lift Operator Name: Delivery Method: HAND - Hand Delivered Linda Days: Prior Verbal Notification: Recipient Understood Notice: Yes Recipient Signature: Yes Med Rec Note Co-signed by Attending: Coverage Notice Comment: [facility] Last DP export: 09/30/18 5:50 p Patient Name: SINDHU MONSIVAIS Page [id number] at 0829 All edits/amendments must be made on the electronic document DICTATION DATE: 10/01/18827 DOOR CLAMPER: LILI 10/01/18827 RPT#: [id number] DC DATE: STATUS: ADM IN [facility] [address] [place] [address] END OF REPORT
[2018-10-01 11:36] VITALS: BP 137/83
--- NOTE | 2018-10-01 12:45 | NUR ---
AGREE WITH ENGINEERING TEACHER ASSESSMENT
--- NOTE | 2018-10-01 13:46 | MORECARE ---
CASE MANAGEMENT DISCHARGE SUMMARY PATIENT: SINDHU MONSIVAIS UNIT: [id number] ADM DATE: 09/21/18 AGE: 38 : 76 SEX: M ROOM/BED: D.2121 AUTHOR: JUSTINA,DOC PHYSICIAN: REFERRING PHYSICIAN: MODESTA SHELTON MD DATE OF SERVICE: 10/01/18 Discharge Plan Patient Name: SINDHU MONSIVAIS Facility: [facility]:[place] : 1980 Planned Disposition: Home with Infusion Therapy Services Anticipated Discharge Date: 10/01/18 Discharge Date: Expected LOS: 10 Initial Reviewer: [id number] Initial Review Date: 09/22/2018 Generated: 10/01/18 2:46 pm Comments DCP- Discharge Planning Updated by [id number]: Мария Cid on 10/01/18 12:[address] Patient Name: SINDHU MONSIVAIS Encounter No: [id number] : 1980 Primary Insurance: [employer] PRIVATE OPTIONS [employer] Anticipated DC Date: 10-01-2018 Planned Disposition: Home with Infusion Therapy Services External Planned Provider:[facility] DCP follow-up note: CM RECEIVED ORDER FOR HOME INFUSION SERVICES, MET WITH PT IN ROOM. PT REPORTS AGREEMENT WITH PLAN AND WANTS TO GO HOME TODAY. CHOICE LISTINGS PROVIDED FOR HOME INFUSION AND HOME HEALTH. PT SIGNED CHOICE FOR [facility] AND [facility]. PT'S SPOUSE TO TRANSPORT HOME. CM CALLED [facility], , SPOKE TO KRISTOPHER WHO INFORMED CM THAT APPROVAL IS NOT REQUIRED FOR GENERIC ZYVOX, PT HAS NO COPAY FOR THE MEDICATION. REFERENCE NUMBER FOR [facility] CONFIRMATION IS [id number]. CM SPOKE TO DR. BARRAGAN WHO APPROVES. CM CALLED [facility], , SPOKE TO AZALEA, NO NURSING AVAILABILITY FOR INFUSION AT HOME, THEY HAVE CALLED [facility], [facility], [facility] AND [facility] YESTERDAY WITH SAME RESULT. CM CALLED ALL COMPANIES LISTED TO INCLUDE [facility] IN HOME, NO RN AVAILABILITY TO MONITOR HOME INFUSION. CM SPOKE TO DR. BARRAGAN VIA PHONE WHO HAS DISCUSSED THIS WITH PT AND SPOUSE, PT AND SPOUSE FEEL COMFORATABLE AND KNOWLEDGEABLE WITH THE TEACHING GIVEN BY [facility] AND WILL GO HOME AND DO INFUSION THEMSELVES. DR BARRAGAN HAS EXPLAINED SYMPTOMS TO WATCH FOR AND PT WILL FOLLOW UP WITH DR. ANG FOR PRIMARY CARE AND LABS IF NEEDED. CM SPOKE TO PT WHO VERIFIED HE IS WILLING AND ABLE TO DO INFUSION WITH ASSISTANCE OF SPOUSE AND WANTS TO GO HOME TODAY, SPOUSE TO TRANSPORT HOME. CM CALLED [facility], , SPOKE TO JOSE ANGEL, PROVIDED ABOVE INFORMATION. JOSE ANGEL ADVISED PT CAN DISCHARGE HOME TODAY AND THEY WILL DELIVER MEDICATIONS AND SUPPLIES TO HOME FOR INFUSION TO BEGIN AT HOME FOR 5PM TODAY. SHOT CORE DRILL OPERATOR HELPER NURSE NOTIFIED. CM CALLED PT'S HOME WET MACHINE OPERATOR MARGO GANDHI AND LEFT MESSAGE NOTIFYING OF OUTCOME. МАРИЯ CID, CASE MANAGEMENT DCP- Discharge Planning Updated by [id number]: Мария Cid on 09/30/18 5:[address] Patient Name: SINDHU MONSIVAIS Encounter No: [id number] : 1980 Primary Insurance: [employer] [place] [employer] Anticipated DC Date: 09-30-2018 Planned Disposition: Home with Infusion Therapy Services External Planned Provider: [facility] DCP follow-up note: CM RECEIVED ORDER FOR HOME INFUSION SERVICES, MET WITH PT IN ROOM. PT REPORTS AGREEMENT WITH PLAN AND WANTS TO GO HOME TODAY. CHOICE LISTINGS PROVIDED FOR HOME INFUSION AND HOME HEALTH. PT SIGNED CHOICE FOR [facility] AND [facility]. PT'S SPOUSE TO TRANSPORT HOME. CM CALLED [facility], , SPOKE TO AZALEA, PROVIDED REFERRAL INFORMATION, PT TO BE ADMITTED TOMORROW. CM FAXED REFERRAL INFORMATION TO [facility], . CM CALLED [phone], SPOKE TO JAS AND PROVIDED REFERRAL FOR HOME INFUSION. CM FAXED REFERRAL FOR HOME INFUSION TO [facility] AT [phone]. CM RECEIVED CALL FROM JOSE ANGEL OF [facility], THEY WILL PROVIDE EDUCATION TO PT TODAY AND WILL DELIVER MEDICATION TO PT'S HOME IN THE MORNING TO START INFUSION 3-19 AT HOME. FOR DISCHARGE, NOTIFY [facility] AT [phone]; FAX DISCHARGE INFORMATION TO [facility] AT [phone]. CM CONTINUES TO WAIT MEDICAL NECESSITY REVIEW FOR APPROVAL OF THE ZYVOX; CM TO NOTIFY DR. BARRAGAN AND DR SHELTON OF INSURANCE DECISION FOR PO ZYVOX. Мария Cid, CASE MANAGEMENT Appended by Мария Cid on 09/30/2018 18:47 CDT: CM RECEIVED PHONE MESSAGE FROM [facility], [facility] INFORMED CM THAT THEY DO NOT HAVE NURSING AVAILABILITY FOR HOME INFUSION 3-14 AND THAT THEY CHECKED WITH [facility], [facility] AND [facility], NONE OF WHICH HAD NURSING AVAILABILITY FOR INFUSION 3-14. CM CALLED [facility], , SPOKE TO DARLEEN WHO INFORMED CM THAT THEY HAD NOT RECEIVED THE FAX REQUEST FOR APPROVAL OF ZYVOX DESPITE THE FAX CONFIRMATION. CM REFAXED THE FORM AND SUPPORTING DOCUMENTS TO [facility] AT [phone]. CM SPOKE TO PT'S WHO INFORMED CM THAT EDUCATION HAD BEEN PROVIDED BY [facility]. CM EXPLAINED DELAY. CM CONTINUES TO WAIT APPROVAL OF DENIAL OF PO ZYVOX FROM PT'S INSURANCE COMPANY AND WILL CONTACT ALL LOCAL HOME HEALTH AGENCIES TO DETERMINE THE SOONEST AVAILABILITY FOR INFUSION START AT HOME. МАРИЯ CID, CASE MANAGEMENT DCP- Discharge Planning Updated by [id number]: Geovanna Mcdowell on 09/30/18 9:[address]PO[address] DR BARRAGAN ABOUT DISCHARGE PLANNING. THE PLAN IS TO DISCHARGE HOME ON ZYVOX AND GENTAMICIN. I EXPLAINED THAT WITH THE PATIENTS INSURANCE, WE MAY NEED TO GO THROUGH A MEDICAL NECESSITY REVIEW FOR APPROVAL OF THE ZYVOX. THE REQUEST HAS BEEN MADE TO PROCEED. I CALLED AND SPOKE WITH ANDERS ALMANZA CM ([phone] X ). EXPLAINED THE SITUTATION TO HER. SHE STATED THAT SHE WOULD HAVE TO TRANSFER ME TO SOMEONE ELSE FOR THAT AUTHORIZATION (SHE SAID SHE COULD NOT GIVE ME THE NUMBER BECAUSE THEY JUST TRANSFER INTERANLLY AND SHE DOES NOT KNOW THE NUMBER). SHE REQUESTED VERBAL UPDATE ON THE PATIENT, AND ONE WAS GIVEN. AUTH RECEIVED AND ENTERED INTO THE PAYOR CONTACTS. SHE TRANSFERRED ME TO [facility]. SHE CONFIRMED THAT THE GENTAMICIN WAS COVERED IN THE FORMULARY, BUT THE ZYVOX WAS NOT AND A MEDICAL NON-FORMULARY EXCEPTION REQUEST FORM COULD BE COMPLETED AND SENT IN TO THE NUMBER ON THE REQUEST FORM WELL THE LATEST NOTE FROM THE PRESCRIBING PHYSICIAN AND THE CULTURE RESULTS. (REFERENCE # FOR CALL IS [id number]). FORM PRINTED FROM THE WEBSITE AND COMPLETED INSTRUCTED. I WALKED IT OVER TO DR BARRAGAN FOR COMPLETION AND SIGNATURE. INFORMATION WAS FAXED TO [phone] FOR AUTH BY THE PHARMACIST (NAME NOT NOTED BEFORE PHONE TRANSFERRED BACK TO [facility] AND CALL ENDED.) I WILL WAIT ON DECISION, AND THEN NOTIFY DR. BARRAGAN AND DR. SHELTON. DCP- Discharge Planning Updated by [id number]: Мария Cid on 09/28/18 4:[address] Patient Name: SINDHU MONSIVAIS Encounter No: [id number] : 1980 Primary Insurance: [place] [employer] Anticipated DC Date: Planned Disposition: Home DCP follow-up note: CM SPOKE TO PT IN ROOM REGARDING DISCHARGE PLANNING AND NEEDS. PT REPORTS THAT HE MAY NEED IV ANTIBIOTICS, DEPENDING ON CULTURE RESULTS. PT REPORTS IF HE NEEDS HOME HEALTH AND INFUSION, HE WANTS [facility] AND HAS NO PREFERENCE ON INFUSION COMPANY. PT REPORTS HIS IS TEACHABLE CAREGIVER AND WILL TRANSPORT HIM HOME AT DISCHARGE. CM TO FOLLOW AND ASSIST WITH ANY IDENTIFIED DISCHARGE NEEDS. Мария Cid, CASE MANAGEMENT Coverage Notice Reviewer: [id number] - Мария Cid Notice Issued Date-Time: 09/30/2018 11:00 Notice Type: Patient Choice Letter Notice Delivered To: Patient Relationship to Patient: Operator Name: Delivery Method: HAND - Hand Delivered Linda Days: Prior Verbal Notification: Recipient Understood Notice: Yes Recipient Signature: Yes Med Rec Note Co-signed by Attending: Coverage Notice Comment: [facility] Last DP export: 10/01/18 7:28 a Patient Name: SINDHU MONSIVAIS Page [phone] at 1346 All edits/amendments must be made on the electronic document DICTATION DATE: 10/01/18 1346 BENEFITS CLERK: LILI 10/01/18 1346 RPT#: [id number] DC DATE: STATUS: ADM IN [facility] [address] [place] [address] END OF REPORT
[2018-10-01] MEDS ORDERED: ZYVOX600 MG PO (14:15)
[2018-10-01] MEDS ORDERED: GENTAMICIN IV (14:21)
--- NOTE | 2018-10-01 15:35 | NUR ---
PT DISCHARGED. DENIES ANY NEEDS. TO PRIVATE CAR PER WHEELCHAIR
--- NOTE | 2018-10-02 14:57 | EC ---
PATIENT:SINDHU MONSIVAIS DATE OF SERVICE: 09/21/18 SEX: M MEDICAL RECORD: [id number] DATE OF : [birth year] LOCATION:D.M2 D.212 AGE OF PATIENT: 38 ADMISSION DATE: 09/21/18 REFERRING PHYSICIAN: INTERPRETING PHYSICIAN: BRANDON DAMON MD ECHOCARDIOGRAM REPORT ECHO CHARGES 4 ECHO COMPLETE Date: 09/27/18 CLINICAL DIAGNOSIS: AFIB ECHOCARDIOGRAPHIC MEASUREMENTS (adult normal given) AC root (d.<3.7cm) 3.0 cm LV Septum d (<1.2 cm> 0.9 cm Valve Excursion 1.4 cm LV Septum (systole) 1.1 cm Left Atria (s.<4.0cm> 2.0 cm LVPW d(<1.2cm) 1.0 cm RV (d.<2.3cm) 2.5 cm LVPW (sytole) 1.9 cm LV diastole(<5.6CM) 4.9 cm MV E-F(>70mm/sec) cm LV systole 3.6 cm LVOT Diameter 2.2 cm MV exc.(>10mm) cm Est.ejection fraction (50-75%) % DOPPLER: LVIT cm/sec A 56 cm/sec E 42 cm/sec LA cm/sec RVSP 23.7 mmHg LVOT 84 cm/sec AOP1/2T m/s Asc. Ao 94 cm/sec RVOT 66 cm/sec RA cm/sec PA 91 cm/sec AV Gradient Peak 3.5 mmHg AV Mean 1.9 mmHg AV Area 3.5 cm MV Gradient Peak 1.7 mmHg MV Mean 0.9 mmHg MV Area cm COMMENTS: Fence Making Machine Operator: Wally [facility] Menagerie Superintendent: 1 Dr. Damon TAPE# PACS Pericardial Effusion N DATE OF SERVICE: 09/27/2018 PROCEDURE: Echocardiogram. FINDINGS: 1. Left ventricular chamber size is within normal limits. Left ventricular systolic function is normal. Overall ejection fraction estimated at 50%. 2. Left atrium, right atrium, and right ventricle chamber sizes are within normal limits. 3. Valvular structures have normal structure and motion. ECHOCARDIOGRAM REPORT [id number] SINDHU MONSIVAIS 4. Doppler interrogation reveals mild mitral regurgitation, mild tricuspid regurgitation, no other valvular insufficiency or stenosis. Pulmonary systolic pressure estimated at 24 mmHg. 5. No evidence of pericardial effusion or left ventricular thrombus. TRANSINT:[id number] Voice Confirmation ID: [id number] DOCUMENT ID: [id number] BRANDON DAMON MD at 1457 CC: [id number] DICTATION DATE: 09/28/18 1140 GENERAL WAREHOUSE ASSOCIATE: 09/28/18 1228 DIS IN 10/01/18 [place] [id number] [place] [id number]
== END 2018-10-01 15:39 | disposition home health service (06) | DRG 31 ==
LOC: D.ICU 12:59 → D.M2 13:05 → D.ICU 13:05 → D.MS 09-25 17:51 → D.ICU 09-27 11:02 → D.M2 09-28 13:04 → D.SDCHOLD 09-28 17:18 → D.M2 09-28 17:22
PROVIDERS: Emergency Medicine; Student in an Organized Health Care Education/Training Program; ADMIT Neurological Surgery; ATTEND Neurological Surgery
PROC: 8C01X6J Collection of Cerebrospinal Fluid from Indwelling Device in Nervous System (ICD-10-PCS; 2018-09-21)
PROC: 00P63JZ Removal of Synthetic Substitute from Cerebral Ventricle, Percutaneous Approach (ICD-10-PCS; principal; 2018-09-27 08:00)
PROC: 05HB33Z Insertion of Infusion Device into Right Basilic Vein, Percutaneous Approach (ICD-10-PCS; 2018-09-29)
PROC: B54MZZA Ultrasonography of Right Upper Extremity Veins, Guidance (ICD-10-PCS; 2018-09-29)
DX: T85.730A Infection and inflammatory reaction due to ventricular intracranial (communicating) shunt, initial encounter (principal); G00.9 Bacterial meningitis, unspecified; Y83.8 Other surgical procedures as the cause of abnormal reaction of the patient, or of later complication, without mention of misadventure at the time of the procedure; I10 Essential (primary) hypertension; I48.91 Unspecified atrial fibrillation; E03.9 Hypothyroidism, unspecified; F32.9 Major depressive disorder, single episode, unspecified; F41.9 Anxiety disorder, unspecified; K21.9 Gastro-esophageal reflux disease without esophagitis; R06.6 Hiccough; K59.00 Constipation, unspecified; K31.84 Gastroparesis

== ENCOUNTER → 2018-10-07 22:27 | Outpatient (CLI) | payer MEDICAID ==
[2018-09-22 12:08] VITALS: BMI 28.7
[~2018-10-07 22:27] MED LIST changes: +GENTAMICIN IV; +THORAZINE25 MG PO; +ZYVOX600 MG PO
[2018-10-07 23:21] LABS: BASOPHILS 0.2 % (0-2); EOSINOPHILS 1.8 % (0-7); HEMATOCRIT 44.2 % (42.0-54.0); HEMOGLOBIN 14.3 g/dL (13.5-17.5); IMMATURE GRANULOCYTES 0.4 % (0-5); LYMPHOCYTES 22.2 % (15-50); MCH 26.5 pg (26.0-34.0); MCHC 32.4 g/dL (31.0-37.0); MCV 81.9 fL (80.0-100.0); MEAN PLATELET VOLUME 9.6 fL (7.4-10.4); MONOCYTES 8.6 % (2-11); NEUTROPHILS 66.8 % (40-80); RDW 15.1 % (11.5-14.5); WBC 8.5 10x3/uL (4.8-10.8)
[2018-10-07 23:25] LABS: PLATELET COUNT 407 10x3/uL (130-400)
[2018-10-07 23:27] LABS: CREATININE - SERUM 1.3 mg/dL (0.6-1.3)
== END | disposition home or self-care (01) ==
LOC: D.LABREF 22:27
PROVIDERS: ATTEND Family Medicine
DX: Z51.81 Encounter for therapeutic drug level monitoring (principal); Z79.2 Long term (current) use of antibiotics

== ENCOUNTER → 2020-09-26 09:42 | Outpatient (CLI) | payer MEDICAID ==
[2018-09-22 12:08] VITALS: BMI 28.7
--- NOTE | ~2020-09-26 | ST ---
PATIENT:SINDHU MONSIVAIS MEDICAL RECORD: [id number] SEX: M LOCATION:[facility] ORDER #: ADMISSION DATE: 09/26/20 AGE OF PATIENT: 40 REFERRING PHYSICIAN: INTERPRETING PHYSICIAN: GAMAL MONTES MD DATE OF SERVICE: 09/26/2020 NUCLEAR STRESS TEST GATED: Gated is normal with normal wall motion and normal wall thickening, calculated EF 57%. SPECT IMAGING: SPECT imaging was performed. 1. Short axis view: Short axis view shows good uptake along the anterior wall, lateral wall, and inferior wall. 2. Horizontal axis: Horizontal axis confirms good uptake along the anterior wall and inferior wall. 3. Vertical axis: Vertical axis shows good uptake along the lateral wall and septum. FINAL IMPRESSION: 1. Normal gated, normal wall motion, normal EF, EF 57%. 2. Normal SPECT imaging. FINAL IMPRESSION: The scan is felt low risk for any significant myocardial ischemia. LV function remains normal. Continued risk factor modification and medical management was recommended. TRANSINT:[id number] Voice Confirmation ID: [id number] DOCUMENT ID: [id number] GAMAL MONTES MD CC: [id number] DICTATION DATE: 09/27/20 0758 SHOW GIRL: 09/28/20 0038 DEP CLI 09/26/20 [place] [id number] [place] [id number]
--- NOTE | ~2020-09-26 | EC ---
PATIENT:SINDHU MONSIVAIS DATE OF SERVICE: 09/26/20 SEX: M MEDICAL RECORD: [id number] DATE OF : [birth year] LOCATION:[facility] AGE OF PATIENT: 40 ADMISSION DATE: 09/26/20 REFERRING PHYSICIAN: INTERPRETING PHYSICIAN: GAMAL MONTES MD ECHOCARDIOGRAM REPORT ECHO CHARGES 4 ECHO COMPLETE Date: 09/26/20 CLINICAL DIAGNOSIS: HEART MURMUR ECHOCARDIOGRAPHIC MEASUREMENTS (adult normal given) AC root (d.<3.7cm) 3.0 cm LV Septum d (<1.2 cm> 1.3 cm Valve Excursion 1.4 cm LV Septum (systole) 1.5 cm Left Atria (s.<4.0cm> 4.0 cm LVPW d(<1.2cm) 1.4 cm RV (d.<2.3cm) 3.8 cm LVPW (sytole) 1.7 cm LV diastole(<5.6CM) 5.2 cm MV E-F(>70mm/sec) cm LV systole 3.5 cm LVOT Diameter 1.8 cm MV exc.(>10mm) 1.7 cm Est.ejection fraction (50-75%) % DOPPLER: LVIT cm/sec A 66.0 cm/sec E 55.0 cm/sec LA cm/sec RVSP 65 mmHg LVOT 98 cm/sec AOP1/2T m/s Asc. Ao 118 cm/sec RVOT 62 cm/sec RA cm/sec PA 97 cm/sec AV Gradient Peak 5.53 mmHg AV Mean 3.05 mmHg AV Area 2.6 cm MV Gradient Peak 3.46 mmHg MV Mean 1.22 mmHg MV Area cm COMMENTS: Featheredger And Reducer Machine: 2 JUAN ANTONIO JACOB Cyber Intel Planner: 3 Dr. Mendez TAPE# PACS Pericardial Effusion N DATE OF SERVICE: Adequate 2D, color flow imaging, spectral Doppler, and M-Mode. FINDINGS: Borderline LVH. LV internal dimension is normal. Wall motion is normal. EF is greater than or equal to 55%. Aortic valve is tricuspid. No evidence of stenosis by Doppler interrogation. Left atrium is normal. Mitral valve shows no prolapse. Trivial MR. Right side is grossly normal. Mild TR. TRANSINT:[id number] Voice Confirmation ID: [id number] DOCUMENT ID: [id number] ECHOCARDIOGRAM REPORT [id number] LOI,SINDHU AZEBGAMAL VEE MD CC: [id number] DICTATION DATE: 09/27/20 1125 ASSISTANT HEAD CASHIER: 09/27/202032 DEP CLI 09/26/20 [place] [id number] [place] [address]
== END | disposition home or self-care (01) ==
LOC: D.HCCARDIO 09:42 → D.HCCECHO 13:30
PROVIDERS: ATTEND Internal Medicine Interventional Cardiology
DX: I20.9 Angina pectoris, unspecified (principal); R01.1 Cardiac murmur, unspecified